=== PATIENT | male | born 1985 | race Caucasian/White ===

== ENCOUNTER 2024-05-13 15:49 | Inpatient (IN) | payer OTHER, SELFPAY ==
[2024-05-13] VITALS (10 sets, daily range): BP systolic 105–129; BP diastolic 60–75; BMI 37.8; BMI 36.9
--- NOTE | 2024-05-13 10:12 | ED.GENMED ---
History of Present Illness
General
Chief Complaint: Abdominal Symptoms
Source: patient
Exam Limitations: none
Time Seen by Provider: 05/13/24 09:57
Nursing documentation reviewed up to this point in time: agreed with
History of Present Illness
History of Present Illness:
38-year-old male with history of NIDDM, HTN, here for 'I feel something stuck in my gut and it's hard to eat or drink anything.' also PCP ordered out pt CXR for cough. States he gets coughing spells that make his abdomen hurt.
States waxing and waning fatigue, feeling hot, lightheaded, poor appetite, abdominal discomfort past 10 days. 10 days ago had one episode of diarrhea after eating hot dog, fries, milkshake from [employer]. No diarrhea since.
States he noted the right side of his abdomen sticks out more than the left.
Past History
Past History
ED Past Medical History: HTN and NIDDM
ED Past Surgical History: None
Social History
Tobacco: Non-smoker
Alcohol: Occasional
Drug: None
Personal: Single
Living: with roommate
Employment: Employed
Family History
Family History: Early CAD and Other (ME in father 30's and GF; GM with brain tumor)
Review of Systems
Review of Systems
Allergies reviewed?: Yes
All Other Systems: ROS reviewed and negative except as documented in HPI and ROS
Constitutional: Reports fatigue; Denies fever or chills
EENT: Denies sore throat
Respiratory: Reports cough (intermittent, makes him gag and throw up, no vomiting in between.); Denies trouble breathing
Cardiac: Denies chest pain
ABD/GI: Reports abdominal pain and nausea
: Denies dysuria, frequency, flank pain, difficulty voiding or urgency
Musculoskeletal: Reports no symptoms
Skin: Reports no symptoms
Neurological: Reports no symptoms
Phy Exam
Physical Exam
Physical Exam:
GENERAL: No acute distress. A&Ox3.
CONSTITUTIONAL: Afebrile.
EYES: clear, conjunctivae normal
ENMT: dry mucus membranes, Pharynx nl
RESPIRATORY: Regular respirations, nonlabored, lungs clear.
CARDIOVASCULAR: Regular rate and rhythm, no murmurs, no rubs.
GI: Soft, obese, mildly generally tender, normal BS
MUSCULOSKELETAL: Moves with ease. Well perfused.
SKIN: Warm, dry, pink
PSYCH: Normal mood and affect. Well kept, interactive and appropriate
NEUROLOGIC: Awake, alert and oriented. No focal neurological deficits
Course
Orders/Labs/Results
Orders:
Orders
05/13/24 10:11
CR Chest - 2 Views Urgent
Comment:
Reason For Exam: cough, feels 'lump' in my esophagus
05/13/24 10:12
CT Abd/Pel (IV only)-DH only Urgent
Comment:
Reason For Exam: abd pain, more mid low to left
05/13/24 10:25
Acetaminophen Urgent
Comment: ADDON
Complete Blood Count/With Diff Urgent
Comprehensive Metabolic Panel Urgent
Lipase Urgent
Manual Differential Urgent
Salicylate Urgent
05/13/24 14:16
CefTRIAXone [Rocephin] 1,000 mg IV NOW STA
MetroNIDAZOLE 500 MG/100 ML [Flagyl 500 mg] 100 ml IV NOW
05/13/24 15:21
Potassium Chloride 10% Elixir [KCl Elixir] 40 meq PO NOW STA
05/13/24 15:36
Admit/Transfer Patient As Directed
Co-Sign Provider:
Level of Care: Inpatient admission
Assign to:: Medical/Surgical
Physician / Group: [email or web address]
Diagnosis: diverticulitis
Reason for Hospitalization: diverticulitis
Expected length of stay greater than two midnights?: Yes
ELOS- Estimated Length of Stay in days: 3
I certify the patient meets the requirements for IP care: Yes
PRN Pain Medication Management As Directed
May give lesser potent ordered pain med per pt: Yes
preference::
Protocol:: Medication orders for pain may be administered in a
manner that supports deferring to patient preference
when the pt is:
- Requesting an ordered lesser potent pain medication.
Least to most potent pain medications are defined
as: acetaminophen < NSAID < tramadol < opioids
(morphine, oxycodone, hydromorphone).
- Requesting a lesser dose of the same medication IF
ORDERED.
- Requesting a less intrusive route of administration
if both routes are prescribed by the provider (PO <
IV).
05/13/24 15:37
Code Status As Directed
Resuscitation Status: Full Code
05/13/24 16:21
Dextrose 5%/0.45%Sodchl 1000ML [D5/0.45%NaCl] 1,000 ml IV 125 mls/hr
Dextrose 50%-Water [Dextrose 50% Syringe] 12.5 grams IV H28LBLA PRN
Glucagon [GlucaGen] 1 mg IM PRN PRN
HYDROmorphone [Dilaudid] 0.5 mg IV Q4HPRN PRN
Ibuprofen [Motrin] 400 mg PO Q6HPRN PRN
Ondansetron Injectable [Zofran] 4 mg IV Q6HPRN PRN
05/13/24 16:21
ColoRectal Surgery Consult Routine
Consulting Provider: Gray Ivan
Was physician already notified: Yes
Activity As Directed
Activity Level: As Tolerated
Bedside Glucose Monitoring As Directed
Frequency: AC&HS
Additional Instructions:: Change to q6h if pt on TPN, tube feeding or not eating
Vital Signs As Directed
Frequency: Per unit guidelines
DX Deep Vein Thrombosis Video Routine
05/13/24 16:30
Insulin Aspart Corrective Low [Novolog Flexpen-Low Resistance] See Protocol SC AC
05/13/24 18:00
Enoxaparin Sodium [Lovenox] 40 mg SC QPM
05/14/24 00:00
MetroNIDAZOLE 500 MG/100 ML [Flagyl 500 mg] 100 ml IV Q8H
05/14/24 Breakfast
NPO
Allow oral meds: Yes
Allow clear liquids: No
05/14/24 06:30
Complete Blood Count/With Diff IN AM
Glycohemoglobin (HgbA1c) IN AM
05/14/24 08:00
Lisinopril [Zestril] 20 mg PO DAILY
NIFEdipine EXTENDED RELEASE [Procardia Xl (Extended Release)] 30 mg PO DAILY
05/14/24 16:00
CefTRIAXone [Rocephin] 1,000 mg IV Q24H
05/15/24 06:00
Basic Metabolic Panel IN AM
LFT [Gyuos-Dpfo-Irpwmqs] IN AM
05/16/24 06:00
Basic Metabolic Panel IN AM
LFT [Bwrze-Zqpb-Wnmhpnt] IN AM
05/17/24 06:00
Basic Metabolic Panel IN AM
LFT [Hxmug-Myul-Vwfsous] IN AM
05/18/24 06:00
Basic Metabolic Panel IN AM
Abnormal Lab Results
05/13/24
10:25
Plt Count 128 L 10^3/uL
(130-400)
MPV 12.2 H fL
(7.4-10.4)
Segmented Neutrophils 38 L %
(42-75)
Band Neutrophils 4 H %
(0-3)
Monocytes (Manual) 21 H %
(2-9)
Sodium 134 L mmol/L
(135-145)
Potassium 3.4 L mmol/L
(3.5-5.1)
Chloride 96 L mmol/L
(98-107)
Total Bilirubin 2.9 H mg/dl
(0.2-1.3)
AST 390 H U/L
(17-59)
ALT 323 H U/L
(0-50)
Alkaline Phosphatase 138 H U/L
(38-126)
Salicylates < 1.0 L mg/dl
(2.0-20.0)
Acetaminophen < 10 L ug/ml
(10-30)
05/13/24 10:25
05/13/24 10:25
Vital Signs
Initial and Last Documented VS:
Initial Vital Signs
Temp Pulse Resp BP Pulse Ox
99.4 F 97 16 120/75 97
05/13/24 08:55 05/13/24 08:55 05/13/24 08:55 05/13/24 08:55 05/13/24 08:55
Last Documented Vital Signs
Temp Pulse Resp BP Pulse Ox
98.7 F 79 18 110/62 95
05/14/24 07:10 05/14/24 08:09 05/14/24 07:10 05/14/24 08:09 05/14/24 07:10
MDM/Problems Addressed
MDM/Problems Addressed:
38-year-old male with history of NIDDM, HTN, here for 'I feel something stuck in my gut and it's hard to eat or drink anything.' also PCP ordered out pt CXR for cough. States he gets coughing spells that make his abdomen hurt.
States waxing and waning fatigue, feeling hot, lightheaded, poor appetite, abdominal discomfort past 10 days. 10 days ago had one episode of diarrhea after eating hot dog, fries, milkshake from [employer]. No diarrhea since.
States he noted the right side of his abdomen 'sticks out' more than the left.
Afebrile, NAD
Mild general abdominal tenderness, soft, symmetrical
11:30 a.m.
CBC no clinically significant abnormality
CMP total bilirubin 2.9 mild to moderate elevated liver enzymes
Lipase normal
2:15 PM:
CT abdomen pelvis with IV only contrast radiology report read: IMPRESSION:
1. Findings as above most consistent with acute sigmoid diverticulitis. There is associated abnormal collection of gas and fluid measuring up to 1.7 cm in diameter, most likely small abscess. As above, this may be an intramural position.
2. Hepatomegaly and hepatic fatty infiltration.
3. Splenomegaly.
4. Mild retroperitoneal lymphadenopathy. This may be reactive, exact etiology is indeterminate at CT.
Case discussed with Dr. Orlanod who agrees with admission to hospitalist, IV antibiotics Rocephin and Flagyl
Hospitalist notified of admission
*Critical Care Note
Total Time (30-74mins, 75-104mins- exclusive of procedures): Not Applicable
ED Attending Note
-
Portions of this chart may have been created with voice recognition software.� Occasional wrong word or��sound alike� substitutions may have occurred due to the inherent limitations of voice recognition software.
Discharge Plan
Departure
Patient Disposition: Admit
Date of Disposition: 05/13/24
Time of Disposition: 14:12
Admit to: Med/Surg
Presentation/result/management discussed w/ accepting MD/DO: Hospitalist
Condition: Fair
Discharge Problem:
Diverticulitis large intestine, Transaminitis, intramural abscess
Interventions
Interventions:
*Risk Screen - Suicide Last Done: 05/13/24 10:17
*General Assessment Last Done: 05/13/24 10:17
*Neglect/Abuse Screening Last Done: 05/13/24 10:17
ED- Fall Risk Assessment Last Done: 05/13/24 10:19
*ED COVID-19 Vaccine History Last Done: 05/13/24 10:17
*Nursing Disposition Last Done: 05/13/24 16:19
SK-Pkhwsn-Fjtgrjdorp Assessment Last Done: 05/13/24 10:17
Discharge Date and Time
Discharge Date/Time: 05/13/24 16:19
[2024-05-13 10:44] LABS: Hematocrit 40.3 % (39.0-52.0); Mean Corp Hgb Conc. 34.7 g/dL (33.0-37.0); Mean Corpuscular Hgb 29.6 pg (27.0-31.0); Mean Corpuscular Volume 85.2 fL (80.0-94.0); Platelet Count 128 10^3/uL (130-400); Red Blood Cell Count 4.73 10^6/uL (4.70-6.10); Red Cell Dist. Width 13.1 % (11.5-14.5); White Blood Cell Count 10.1 10^3/uL (4.8-10.8)
[2024-05-13 10:53] LABS: ALT (SGPT) 323 U/L (0-50); AST (SGOT) 390 U/L (17-59); Albumin 3.5 g/dl (3.5-5.0); Alkaline Phosphatase 138 U/L (38-126); Blood Urea Nitrogen 15 mg/dl (9-20); Calcium 8.8 mg/dl (8.4-10.2); Carbon Dioxide 25 mmol/L (22-30); Chloride 96 mmol/L (98-107); Estimated Creatinine Clearance > 125 ml/min; Glucose 97 mg/dl (70-99); Lipase 142 U/L (23-300); Potassium 3.4 mmol/L (3.5-5.1); Sodium 134 mmol/L (135-145); Total Bilirubin 2.9 mg/dl (0.2-1.3); Total Protein 6.9 g/dl (6.3-8.2); eGFR > 60.00
[2024-05-13 11:05] LABS: Mean Platelet Volume 12.2 fL (7.4-10.4)
[2024-05-13 11:31] LABS: Absolute Neutrophils -Man Diff 4.2 10^3/uL (1.4-6.5); Band Neutrophils 4 % (0-3); Lymphocytes 27 % (20-51); Monocytes 21 % (2-9); Segmented Neutrophils 38 % (42-75)
[2024-05-13 11:32] LABS: Atypical Lymphocytes 7 %; Metamyelocytes 3 % (-); Normal RBC Morphology Yes; Platelets Checked Yes; Smudge Cells 2+; Total Cells Counted 100; Vacuolated Segs 2+
[2024-05-13] MEDS: ROCEPHIN 1000 MG IV (15:11)
--- NOTE | 2024-05-13 15:16 | HPS.HSE ---
Family Physician
-
Family Physician: Flor Casiano
Chief Complaint
-
abdominal pain assoicated with nausea, vomiting and diarrhea.
History of Present Illness
38-year-old male with history of NIDDM, HTN presented to us with mid lower abdominal pain radiating to left side associated with nausea, vomiting and diarrhea for past ten days. it mainly started after eating hot dog and fries from [employer].
patient stated pain is intermittent. he complained of vomiting and diarrhea. for past three days it got worse which prompted him to come to the ER. he is also complaining of fatigue, feeling hot, lightheaded, poor appetite. denied fever, chills,
chest pain, sob. denied SAAVEDRA, dizzy or syncopal episode. denied dysuria or hematuria.
CT with diverticulitis. admitting for further management. patient received iv ceftriaxone and Flagyl in ER.
Medical History
Past Medical History
Past Medical History: Reports Other
Additional Past Medical History:
hyperlipidemia
type 2 DM
HTN
Past Surgical History: Reports None
Social History
Tobacco: Non-smoker
Alcohol: None
Drug: None
Employment: Employed
Family History
Family History: Not pertinent
Allergies / Home Medications
Allergies reflects when Allergies were last updated in [employer].
Home Medications with original date entered in [employer]
Allergy/Medication List:
Allergies
Allergy/AdvReac Type Severity Reaction Status Date / Time
No Known Allergies Allergy Verified 05/13/24 08:58
Home Medications
ibuprofen 200 mg tablet (Advil) 400 mg PO DAILYPRN PRN mild pain 08/02/21
cyanocobalamin (vitamin B-12) 1,000 mcg tablet 1,000 mcg PO DAILY #30 tabs 08/03/21
nifedipine 30 mg tablet,extended release 30 mg PO DAILY #30 tabs 08/03/21
atorvastatin 10 mg tablet (Lipitor) 10 mg PO QPM 05/13/24
lisinopril 20 mg tablet 20 mg PO DAILY 05/13/24
metformin 500 mg tablet 500 mg PO BID 05/13/24
omega 6-uzi-sgr-fish oil 1,000 mg (120 mg-180 mg) capsule (Fish Oil) 1 cap PO DAILY 05/13/24
therapeutic multivitamin 1 tab PO DAILY 05/13/24
Review of Systems
-
Constitutional: Reports No Symptoms
EENT: Reports No Symptoms
Respiratory: Reports No Symptoms
Cardiac: Reports No Symptoms
Abdomen/GI: Reports Abdominal Pain, Nausea, Vomiting and Diarrhea
: Reports No Symptoms
Musculoskeletal: Reports No Symptoms
Skin: Reports No Symptoms
Neurological: Reports No Symptoms
Endocrine: Reports No Symptoms
Hematologic/Lymphatic: Reports No Symptoms
Psych: Reports No Symptoms
Physical Exam
Vital Signs
Vital Signs
Temp Pulse Resp BP Pulse Ox
99.4 F 85 17 128/72 89
05/13/24 08:55 05/13/24 14:00 05/13/24 14:00 05/13/24 14:00 05/13/24 14:00
Physical Exam
General: Well Developed, Well Nourished and No Apparent Distress
HEENT: NormoCephalic, Moist mucous membranes and Atraumatic
Respiratory: Clear
Cardiac: S1/S2 and Regular Rhythm; No Murmur or Rub
GI: Soft, Non Distended, Normal Bowel Sounds and Tender; No Organomegaly
Rectal: Deferred by Provider
Musculoskeletal: No Clubbing, No Cyanosis and No Edema
Skin: No Rash
Neuro: AO x 3 and Nonfocal/grossly intact
Psych: Calm
Laboratory Results
-
05/13/24 10:25
05/13/24 10:25
Laboratory Results
Total Bilirubin 2.9 mg/dl (0.2-1.3) H 05/13/24 10:25
AST 390 U/L (17-59) H 05/13/24 10:25
ALT 323 U/L (0-50) H 05/13/24 10:25
Alkaline Phosphatase 138 U/L (38-126) H 05/13/24 10:25
Lipase 142 U/L (23-300) 05/13/24 10:25
Data Reviewed
-
CT Scan: Report Reviewed by me
Lab Data: Labs Reviewed by me
Impression/Plan
-
#diverticulitis/possible small intramural abscess
-CT abdomen pelvis with Findings as above most consistent with acute sigmoid diverticulitis. There is associated abnormal collection of gas and fluid measuring up to 1.7 cm in diameter, most likely small abscess. As above, this may be an intramural
position.
2. Hepatomegaly and hepatic fatty infiltration.
3. Splenomegaly.
4. Mild retroperitoneal lymphadenopathy. This may be reactive, exact etiology is indeterminate at CT.
-chest x ray with Hypoaerated lungs without consolidation.
-colorectal consulted
-keep patient NPO, fluids continued for hydration
-iv ceftriaxone and flagyl continued
-Dilaudid prn for pain
-Zofran prn for n/v
#transaminitis unclear likely acute ischemic liver injury.
-AST 390,ALT 323, ALK 138, total Bili 209
-GI consulted
#hypokalemia likely from poor oral intake/diarrhea and vomiting
-k 3.4
-oral kcl
-monitor BMP in am
#HLD
-hold statin due elevated transaminitis
#essential htn
-lisinopril,nifedipine continued with hold parameter
#type 2 Dm
-hold metformin
-sliding scale
Hx of morbid obesity likely 2/2 excess calories
weight loss suggested
DVTppx
Lovenox
Full code
[2024-05-13] MEDS: FLAGYL 500 MG 100 IV ×2 (15:17→23:02)
[2024-05-13] MEDS: KCL ELIXIR 40 MEQ PO (16:02)
--- NOTE | 2024-05-13 16:14 | W.PN.UPDATE ---
Update Note
Progress Note Update
This note serves as an addendum to the H&P by explosive ordnance disposal technician MAU Sarah avila
HPI:
38M HX NIDDM, HTN seen at ER:
- acute mid lower abdominal pain radiating to left side associated with nausea, vomiting and diarrhea for last ten days. - - onset started after eating hot dog and fries from [employer]
- pain is intermittent
- vomiting and diarrhea for past three days
- fatigue, feeling hot, lightheaded, poor appetite.
ROS:
- Denied fever, chills, chest pain, sob. denied SAAVEDRA, dizzy or syncopal episode. denied dysuria or hematuria.
Reviewed VS:
Vital Signs
Temp Pulse Resp BP Pulse Ox
99.4 F 85 17 128/72 89
05/13/24 08:55 05/13/24 14:00 05/13/24 14:00 05/13/24 14:00 05/13/24 14:00
Abnormal Lab Results
05/13/24
10:25
Plt Count 128 L
MPV 12.2 H
Segmented Neutrophils 38 L
Band Neutrophils 4 H
Monocytes (Manual) 21 H
Sodium 134 L
Potassium 3.4 L
Chloride 96 L
Total Bilirubin 2.9 H
AST 390 H
ALT 323 H
Alkaline Phosphatase [address] Abd/Pel (IV only)-DH only
1. Findings as above most consistent with acute sigmoid diverticulitis. There is associated abnormal collection of gas and fluid measuring up to 1.7 cm in diameter, most likely small abscess. As above, this may be an intramural position.
2. Hepatomegaly and hepatic fatty infiltration.
3. Splenomegaly.
4. Mild retroperitoneal lymphadenopathy. This may be reactive, exact etiology is indeterminate at CT.
11/29/21 TTE
Normal left ventricular size and systolic function. LV ejection fraction is 70- 75%.
No significant valvular disease.
No prior study available for comparison.
Last hospitalist admission:
DATE OF ADMISSION: 08/02/2021 - DATE OF DISCHARGE: 08/03/2021
DISCHARGE DIAGNOSIS:
1. Right sided weakness/numbness along with right facial droop likely secondary to hypertension-induced neurological symptoms.
2. Newly diagnosed diabetes mellitus.
ASSESSMENT & PLAN
Acute diverticulitis/possible small intramural abscess
- NPO and IVF
- IV CFTZ and Metro
- PRN Dilaudid IV
- PRN Zofran IV
Transaminitis unclear likely acute ischemic liver injury.
Hepatomegaly and hepatic fatty infiltration.
Splenomegaly.
Mild retroperitoneal lymphadenopathy. This may be reactive, exact etiology is indeterminate at CT
- Hold stain
- Trend LFts
- Onco consult
Ess[place] HTN
- c/w Lisinopril, Nifedipine
DMT2
- hold Metformin'
- add ISS low
DVT Px: LMWH
Full code
IP MS
[2024-05-13 16:59] LABS: Glucose - Point of Care 93 mg/dl (70-99)
[2024-05-13] MEDS: NOVOLOG FLEXPEN-LOW RESISTANCE SC (16:59)
--- NOTE | 2024-05-13 17:03 | CON.GI ---
Consultation
-
Date/Time Consultation Requested: 05/13/24
Date/Time Consultation Performed: 05/13/24
Requesting Provider: Sarah Alex
Performing Provider: Nakita King
Reason for Consultation: Diverticulitis, elevated LFTs
Medical History
Chief Complaint / HPI
Chief Complaint: N/V/Diarrhea
History of Present Illness:
Dayne is a 38-year-old male with past medical history of TIA in 2021, hypertension, diabetes who presents with nausea, vomiting and diarrhea for the last [address] scan obtained on admission showed enlarged liver, diffuse decreased attenuation
representing fatty infiltration. No intrahepatic or extrahepatic ductal dilatation. Gallbladder is unremarkable. Spleen is enlarged. Pancreas appears normal. Evidence of acute sigmoid diverticulitis with associated abnormal collection of gas
and fluid measuring up to 1.7 cm, most likely representing a small abscess. Additionally there is an aorto caval lymph node measuring 1.1 cm.
He is afebrile and hemodynamically unstable, currently not having much abdominal pain but has persistent nausea. Denies family history of colorectal cancer, advance colon polyps or liver disease. Denies tobacco alcohol or illicit drug use. Denies
prior hepatitis infection. Does admit to taking about 4 tablets of ibuprofen daily for the last week otherwise does not regularly use NSAIDs or Tylenol use. Denies any zeve-pkz-zmqieyh or herbal supplements. No prior endoscopy or colonoscopy.
Labs: WBC 10.1, hemoglobin 14, platelets 128, sodium 134, potassium 3.4, chloride 96, T. bili 2.4, AST 390, ALT 323, alk phos 138, [id number]
Past Medical History
Past Medical History: CVA (TIA), HTN and NIDDM
Social History
Tobacco: Non-Smoker
Alcohol: None
Drug: None
Family History
Family History: Reviewed & Not Pertinent
Allergies / Home Medications
Allergy/AdvReac Type Severity Reaction Status Date / Time
No Known Allergies Allergy Verified 05/13/24 08:58
�Medication �Instructions �Recorded
ibuprofen 200 mg tablet (Advil) 400 mg PO DAILYPRN PRN mild pain 08/02/21
cyanocobalamin (vitamin B-12) 1,000 mcg PO DAILY #30 tabs 08/03/21
1,000 mcg tablet
nifedipine 30 mg tablet,extended 30 mg PO DAILY #30 tabs 08/03/21
release
atorvastatin 10 mg tablet (Lipitor) 10 mg PO QPM 05/13/24
lisinopril 20 mg tablet 20 mg PO DAILY 05/13/24
metformin 500 mg tablet 500 mg PO BID 05/13/24
omega 2-pxf-kxy-fish oil 1,000 mg 1 cap PO DAILY 05/13/24
(120 mg-180 mg) capsule (Fish Oil)
therapeutic multivitamin 1 tab PO DAILY 05/13/24
Review of Systems
-
History Source: Patient
All other systems: A 12 pt ROS was Negative except as stated above in HPI
Vital Signs
Temp Pulse Resp BP Pulse Ox
99.4 F 93 23 116/61 89
05/13/24 08:55 05/13/24 16:00 05/13/24 16:00 05/13/24 16:00 05/13/24 16:00
Physical Exam
Exam
General: Well Developed, Well Nourished, No Apparent Distress and Comfortable
GI: Soft, Non Tender, Non Distended and Normal Bowel Sounds
Results
WBC 10.1 10^3/uL (4.8-10.8) 05/13/24 10:25
Hgb 14.0 g/dL (13.0-18.0) 05/13/24 10:25
Hct 40.3 % (39.0-52.0) 05/13/24 10:25
MCV 85.2 fL (80.0-94.0) 05/13/24 10:25
Plt Count 128 10^3/uL (130-400) L 05/13/24 10:25
Sodium 134 mmol/L (135-145) L 11/12/24 10:25
Potassium 3.4 mmol/L (3.5-5.1) L 05/13/24 10:25
Chloride 96 mmol/L (98-107) L 05/13/24 10:25
Carbon Dioxide 25 mmol/L (22-30) 05/13/24 10:25
BUN 15 mg/dl (9-20) 05/13/24 10:25
Creatinine 1.1 mg/dL (0.7-1.3) 05/13/24 10:25
Calcium 8.8 mg/dl (8.4-10.2) 05/13/24 10:25
Total Bilirubin 2.9 mg/dl (0.2-1.3) H 05/13/24 10:25
AST 390 U/L (17-59) H 05/13/24 10:25
ALT 323 U/L (0-50) H 05/13/24 10:25
Alkaline Phosphatase 138 U/L (38-126) H 05/13/24 10:25
Lipase 142 U/L (23-300) 05/13/24 10:25
Diagnostic Image Results:
Prior GI Procedures:
EGD:
Colonoscopy:
Assessment / Plan
-
38 y.o. male w/ PMhx HTN, DM2, Hx TIA admitted with sigmoid diverticulitis w/ abscess and elevated liver enzymes.
#Acute Complicated Sigmoid Diverticulitis w/ small abscess
-WBC 10, 4 bands
-BCx pending
-c/w Zosyn
-Colorectal surgery consulted, suspect abscess too small to be drained
-will require colonoscopy 6-8 weeks following resolution of acute diverticulitis
-Antiemetics
-Okay to advance to clear liquids when patient able to tolerate
#Elevated Liver enzymes
-Predominantly hepatocellular, T. bili 2.4, AST 390, ALT 323, alk phos 138
-given clinical scenario, would expect to find liver abscesses, however, not seen on imaging; evidence of fatty liver
-check hepatitis serologies, ceruloplasmin, acetaminophen level, salicylates
-no evidence of choledocholithiasis or cholecystitis
-if no improvement in AM labs/worsening, recommend MRI/MRCP
#Hepatomegaly
#Hepatic Steatosis
-liekly 2/2 underlying metabolic disease, has several risk factors including obesity, HTN, DM2
-outpatient f/u for formal workup and assessment of fibrosis
Data Reviewed
-
CT Scan: Report Reviewed by me
Old Records: Reviewed
-
-
Thank you for consultation and allowing me to participate in the patient's care. Please call the health professional GI physician during the after hours with any questions or concerns.
[2024-05-13] MEDS: D5/0.45%NACL 1000 IV (17:05)
[2024-05-13] MEDS: LOVENOX 40 MG SC (17:10)
[2024-05-13 17:56] LABS: Acetaminophen < 10 ug/ml (10-30); Salicylate < 1.0 mg/dl (2.0-20.0)
--- NOTE | 2024-05-13 19:30 | PTCARENOTE ---
Pt received from day shift RN. Pt pleasant, AAOX3, VSS, and absent of pain. Pt bed in lowest position and call phelps within reach. Pt educated on importance of call phelps usage, pt relays understanding and cooperation. Will continue with current plan
of care.
--- NOTE | 2024-05-13 20:31 | CON.CRS ---
Consultation
-
Date/Time Consultation Requested: 05/13/2024 @16:21
Date/Time Consultation Performed: 05/13/2024 @18:00
Requesting Provider: JA Long
Performing Provider: Art Ivan MD
Reason for Consultation: Sigmoid diverticulitis
Medical History
-
Chief Complaint: abdominal pain
History of Present Illness:
38yo male admitted with his first episode of sigmoid diverticulitis. He has a history of NIDDM, hypertension and obesity, who developed left lower quadrant abdominal pain 10 days ago. He has had nausea and intermittent vomiting. His symptoms began
after eating a hot dog followed by abdominal discomfort and diarrhea. Throughout the week he was not moving his bowels. He denies any rectal bleeding, fevers or chills. At present he is comfortable and he denies nausea, but he is not hungry. No
prior colonoscopy.
He has a low-grade fever (100.4) and he is not tachycardic. He appears comfortable and his abdomen is minimally tender in the LLQ. There are no peritoneal signs. His wbc is normal. A CT scan of the abdomen and pelvis with IV contrast there is mild
inflammatory changes of the sigmoid colon with a 1.7cm intramural abscess. There is no free air.
Past Medical History
Past Medical History: HTN (hypertension-induced neurologic symptoms 08/23), Hypercholesterolemia and NIDDM
Past Surgical History: None
Social History
Tobacco: Non-Smoker
Alcohol: None
Drug: None
Personal: Single
Employment: Employed
Family History
Family History: Reviewed & Noncontributory
Allergies / Home Medications
Allergy/AdvReac Type Severity Reaction Status Date / Time
No Known Allergies Allergy Verified 05/13/24 08:58
�Medication �Instructions �Recorded �Confirmed �Type
ibuprofen 200 mg tablet (Advil) 400 mg PO DAILYPRN PRN mild pain 08/02/21 05/13/24 History
cyanocobalamin (vitamin B-12) 1,000 mcg PO DAILY #30 tabs 08/03/21 05/13/24 Rx
1,000 mcg tablet
nifedipine 30 mg tablet,extended 30 mg PO DAILY #30 tabs 08/03/21 05/13/24 Rx
release
atorvastatin 10 mg tablet (Lipitor) 10 mg PO QPM 05/13/24 05/13/24 History
lisinopril 20 mg tablet 20 mg PO DAILY 05/13/24 05/13/24 History
metformin 500 mg tablet 500 mg PO BID 05/13/24 05/13/24 History
omega 7-bvf-thm-fish oil 1,000 mg 1 cap PO DAILY 05/13/24 05/13/24 History
(120 mg-180 mg) capsule (Fish Oil)
therapeutic multivitamin 1 tab PO DAILY 05/13/24 05/13/24 History
Review of Systems
-
History Source: Patient
All other systems: Negative unless noted
A 10 point review of systems was completed, and was negative except as per HPI.
Physical Exam
Vital Signs
Temp 100.4 F H 05/13/24 16:55
Pulse 92 05/13/24 16:55
Resp Rate 19 05/13/24 16:55
Blood pressure 117/68 05/13/24 16:55
SaO2 94 05/13/24 16:55
05/12/24 05/13/24 05/14/24
06:59 06:59 06:59
Actual Weight 126.915 kg
Body Mass Index (BMI) 36.9
Lab Results / Allergies
05/13/24 10:25
05/13/24 10:25
WBC 10.1 10^3/uL (4.8-10.8) 05/13/24 10:25
Hgb 14.0 g/dL (13.0-18.0) 05/13/24 10:25
Hct 40.3 % (39.0-52.0) 05/13/24 10:25
Plt Count 128 10^3/uL (130-400) L 05/13/24 10:25
Allergy/AdvReac Type Severity Reaction Status Date / Time
No Known Allergies Allergy Verified 05/13/24 08:58
Physical Exam
General: Well Developed, Well Nourished and Comfortable
HEENT: Anicteric
Respiratory: Clear
Cardiac: Regular Rhythm
GI: Soft, Non Distended and Tender (LLQ, minimal, no peritoneal signs)
Musculoskeletal: No Edema
Skin: Warm
Neuro: Awake and Alert
Data Reviewed
-
CT Scan: Image Personally Visualized and interpreted, Report Reviewed by me and Discussed with Patient
Labs: Labs Reviewed by me and Discussed with Patient
Assessment / Plan
-
Sigmoid diverticulitis (1st episode) with 1.7 intramural abscess.
I reviewed the current findings with the patient and discussed the treatment options, i.e. nonoperative management versus surgery. We discussed the risks and benefits of each. There is no indication for surgery at this time, which could involve a
temporary colostomy. The plan is for bowel rest and antibiotics. The abscess is too small to consider percutaneous drainage, and intramural abscesses are difficult to drain. Colonoscopy once the acute process has resolved. He is in agreement with
the plan. Continue NPO tonight and will reassess in the morning.
He has elevated LFT's and no ductal dilatation on CT. GI is following.
[2024-05-13 21:17] LABS: Glucose - Point of Care 110 mg/dl (70-99)
[2024-05-14] MEDS: D5/0.45%NACL 1000 IV ×3 (02:21→21:35)
[2024-05-14 07:10] VITALS: BP 110/62
[2024-05-14 07:58] LABS: Glucose - Point of Care 147 mg/dl (70-99)
[2024-05-14] MEDS: NOVOLOG FLEXPEN-LOW RESISTANCE SC ×2 (08:05→17:22)
[2024-05-14] MEDS: FLAGYL 500 MG 100 IV (08:08)
[2024-05-14] MEDS: PROCARDIA XL (EXTENDED RELEASE) 30 MG PO (08:09)
[2024-05-14] MEDS: ZESTRIL 20 MG PO (08:09)
[2024-05-14 08:23] LABS: PT 14.7 Sec (11.4-14.6)
--- NOTE | 2024-05-14 08:33 | W.PN.GI.CBS2 ---
Today's Communication / Plan
-
f/u AM labs to determine if MRI/MRCP needed
Assessment / Plan
-
38 y.o. male w/ PMhx HTN, DM2, Hx TIA admitted with sigmoid diverticulitis w/ abscess and elevated liver enzymes.
#Acute Complicated Sigmoid Diverticulitis w/ small abscess
-WBC 10, 4 bands
-BCx pending
-c/w Zosyn
-Colorectal surgery consulted, suspect abscess too small to be drained
-will require colonoscopy 6-8 weeks following resolution of acute diverticulitis
-Antiemetics
-bowel rest
-NPO-- will await surgery reeval today to advance diet
#Elevated Liver enzymes
-Predominantly hepatocellular, T. bili 2.4, AST 390, ALT 323, alk phos 138
-given clinical scenario, would expect to find liver abscesses, however, not seen on imaging; evidence of fatty liver
-check hepatitis serologies, ceruloplasmin; acetaminophen and salicylate levels undetectable
-no evidence of choledocholithiasis or cholecystitis
-if no improvement in AM labs/worsening, recommend MRI/MRCP
#Hepatomegaly
#Hepatic Steatosis
-liekly 2/2 underlying metabolic disease, has several risk factors including obesity, HTN, DM2
-outpatient f/u for formal workup and assessment of fibrosis
Subjective
Subjective
Date of Service: May 14, 2024
Patient seen in follow-up, overall, no real change in symptoms since yesterday. AM labs pending
Objective
Data Reviewed
Laboratory Data:
Laboratory Results
PT 14.7 Sec (11.4-14.6) H 05/14/24 06:30
INR 1.10 05/14/24 06:30
Total Bilirubin 2.9 mg/dl (0.2-1.3) H 05/13/24 10:25
AST 390 U/L (17-59) H 05/13/24 10:25
ALT 323 U/L (0-50) H 05/13/24 10:25
Alkaline Phosphatase 138 U/L (38-126) H 05/13/24 10:25
Lipase 142 U/L (23-300) 05/13/24 10:25
Vital Signs and I&O:
Vital Signs
Temp Pulse Resp BP Pulse Ox
98.7 F 79 18 110/62 95
05/14/24 07:10 05/14/24 08:09 05/14/24 07:10 05/14/24 08:09 05/14/24 07:10
I&O
05/13/24 05/14/24 05/15/24
06:59 06:59 06:59
Intake Total 1600 / 1600
Balance 1600 / 1600
Physical Exam
Physical Exam
HEENT: Anicteric and Moist mucous membranes
GI: Soft, Non Distended, Non Tender and Normal Bowel Sounds
[2024-05-14 08:48] LABS: ALT (SGPT) 283 U/L (0-50); AST (SGOT) 320 U/L (17-59); Alkaline Phosphatase 126 U/L (38-126); Blood Urea Nitrogen 12 mg/dl (9-20); Carbon Dioxide 28 mmol/L (22-30); Chloride 99 mmol/L (98-107); Direct Bilirubin 1.3 mg/dl (0.0-0.4); Estimated Creatinine Clearance > 125 ml/min; Glucose 130 mg/dl (70-99); Potassium 3.3 mmol/L (3.5-5.1); Sodium 137 mmol/L (135-145); Total Bilirubin 1.9 mg/dl (0.2-1.3); Total Protein 6.4 g/dl (6.3-8.2); eGFR > 60.00
--- NOTE | 2024-05-14 08:52 | W.PN.CRS1 ---
Today's Communication / Plan
-
Advance to clears
IV antibiotics
Assessment/Plan
-
Sigmoid diverticulitis (1st episode) with 1.7 intramural abscess.
Tmax 100.4 yesterday, WBC pending
-Continue to trend labs
-Advance diet to clears
-No role for surgery at this time, if he worsens he will require a colectomy with colostomy creation
-Continue IV antibiotics
-Eventual colonoscopy in an outpatient setting
-Will follow
Subjective Data
Subjective Data
Date of Service: May 14, 2024
Patient states he feels 'the same'. He is very thirsty. He does not feel abdominal pain but feels more of a 'lump' in his abdomen. He is having loose stools and flatus.
Objective Data
-
Vital Signs
Temp Pulse Resp BP Pulse Ox
98.7 F 79 18 110/62 95
05/14/24 07:10 05/14/24 08:09 05/14/24 07:10 05/14/24 08:09 05/14/24 07:10
Intake & Output
05/13/24 05/14/24 05/15/24
06:59 06:59 06:59
Intake Total 1600 / 1600
Balance 1600 / 1600
Intake:
IV fluids (Total) 1500 / 1500
IV piggybacks 100 / 100
Other:
Number of approximated MODERATE 3
amounts of urine
Lab Results
05/14/24 06:30
Physical Exam
-
General: No Acute Distress and AOx3
Abdomen: Soft, Non Distended and Tender (mild suprapubic)
Skin: Warm and Dry
[2024-05-14 09:09] LABS: Hematocrit 37.7 % (39.0-52.0); Hemoglobin 12.9 g/dL (13.0-18.0); Mean Corp Hgb Conc. 34.2 g/dL (33.0-37.0); Mean Corpuscular Volume 87.7 fL (80.0-94.0); Mean Platelet Volume 13.1 fL (7.4-10.4); Platelet Count 132 10^3/uL (130-400); Red Cell Dist. Width 13.4 % (11.5-14.5); White Blood Cell Count 8.5 10^3/uL (4.8-10.8)
[2024-05-14 10:33] LABS: Glycohemoglobin (HgbA1c) 5.9 % (4.0-5.6)
--- NOTE | 2024-05-14 11:40 | W.PN.HOSP.TC ---
Today's Communication/Plan
-
Continue antibiotics
Clear liquids
MRI abdomen
Assessment / Plan
Assessment / Plan
Gen-AAOx3, NAD
HEENT-NC, AT, anicteric, clear oral mm
Neck-supple
CV-reg, no M, +S1/S2
Lungs-clear B/L
Abd-soft, NT, ND
Ext-no edema
Musculoskeletal-no cyanosis, clubbing
Skin-warm and dry
Neuro-grossly non-focal
Psych-calm, cooperative
Acute sigmoid diverticulitis -first episode in his lifetime. Now on clear liquids. Continue antibiotics. Complicated by 1.7 cm abscess, appears too small to drain. Appreciate colorectal surgery input.
Outpatient colonoscopy in 2 months.
Other incidental findings noted on CT scan including splenomegaly, hepatomegaly and hepatic fatty infiltration, mild retroperitoneal lymphadenopathy. Lymphadenopathy likely reactive.
Hypokalemia -will replete. Check magnesium.
Hyponatremia -present on admission, resolved.
DM2 with hyperglycemia -hemoglobin A1c 5.9%. Weight loss is the pfeiffer. On metformin at home.
Elevated liver enzymes - primarily transaminases. Workup in progress. GI consulted. MRI abdomen ordered.
Thrombocytopenia -present on admission, resolved.
Essential hypertension -stable.
Hyperlipidemia - hold atorvastatin in light of elevated liver enzymes.
Obesity due to excess calories
Full code
Anticipated Discharge: 24 - 48 hours
Subjective/Interval History
-
Date of Service: May 14, 2024
Patient seen and examined. Overall feeling somewhat better. No complaints.
Objective Data
-
Labs:
Laboratory Results
05/14/24
06:30
WBC 8.5
Hgb 12.9 L
Hct 37.7 L
Plt Count 132
PT 14.7 H
INR 1.10
Sodium 137
Potassium 3.3 L
Chloride 99
Carbon Dioxide 28
BUN 12
Creatinine 0.9
Glucose 130 H
Calcium 8.0 L
Total Bilirubin 1.9 H D
AST 320 H
ALT 283 H
Alkaline Phosphatase 126
Vital Signs:
Vital Signs
Temp Pulse Resp BP Pulse Ox
98.7 F 79 18 110/62 95
05/14/24 07:10 05/14/24 08:09 05/14/24 07:10 05/14/24 08:09 05/14/24 07:10
I&O
05/13/24 05/14/24 05/15/24
06:59 06:59 06:59
Intake Total 1600 / 1600
Balance 1600 / 1600
Review of Systems
-
History Source: Patient
All other systems: Reviewed and negative
[2024-05-14 12:03] LABS: Glucose - Point of Care 174 mg/dl (70-99)
[2024-05-14 12:20] LABS: Absolute Neutrophils -Man Diff 2.6 10^3/uL (1.4-6.5); Atypical Lymphocytes 33 %; Band Neutrophils 2 % (0-3); Eosinophils 5 % (0-6); Lymphocytes 13 % (20-51); Monocytes 17 % (2-9); Segmented Neutrophils 29 % (42-75)
[2024-05-14 12:21] LABS: Metamyelocytes 1 % (-); Normal RBC Morphology Yes; Platelets Checked Yes; Total Cells Counted 100
[2024-05-14] MEDS: NOVOLOG FLEXPEN-LOW RESISTANCE 1 UNITS SC (12:23)
[2024-05-14] MEDS: KCL 40 MEQ PO (12:24)
[2024-05-14] MEDS: UNASYN IV ×2 (12:24→17:36)
[2024-05-14 12:43] LABS: Magnesium 2.2 mg/dl (1.6-2.3)
--- NOTE | 2024-05-14 12:52 | CM ---
Pt seen bedside. Pt lives w/ girlfriend in a [facility]- 7 steps to enter.
Independent. Denies DME use
No rehab hx
No VN/PT hx
Address, point of contacts and insurance verified
PCP: Dr. Flor Orlando
Pharmacy: [facility]
Per pt, he will have private transport at d/c
Plan: Home; no needs anticipated
[2024-05-14 16:37] LABS: Glucose - Point of Care 106 mg/dl (70-99)
[2024-05-14] MEDS: LOVENOX 40 MG SC (17:36)
[2024-05-14] MEDS: KCL 20 MEQ PO (20:37)
[2024-05-14 22:08] LABS: Glucose - Point of Care 111 mg/dl (70-99)
[2024-05-14 23:19] VITALS: BP 103/61
[2024-05-15] MEDS: UNASYN IV ×3 (00:16→12:36)
[2024-05-15 07:00] VITALS: BP 111/64
[2024-05-15 08:27] LABS: Glucose - Point of Care 97 mg/dl (70-99)
--- NOTE | 2024-05-15 08:32 | W.PN.CRS1 ---
Today's Communication / Plan
-
low residue
will s/o
Assessment/Plan
-
Sigmoid diverticulitis (1st episode) with 1.7 intramural abscess.
Afebrile for 24 hours, WBC pending
-Continue to trend labs
-Advance diet to low residue
-No role for surgery at this time
-Continue IV antibiotics
-Eventual colonoscopy in an outpatient setting
-Will sign off. Follow up in the office with Dr. Ivan in a few weeks. Please contact us if further surgical issues arise.
Subjective Data
Subjective Data
Date of Service: May 15, 2024
Patient states he had no issues overnight. He is having gas and bowel movements. He denies nausea or vomiting. He is not that hungry. He drank some clears yesterday but he has a bad taste in his mouth.
Objective Data
-
Vital Signs
Temp Pulse Resp BP Pulse Ox
99.9 F 88 18 103/61 100
05/14/24 23:19 05/14/24 23:19 05/14/24 23:19 05/14/24 23:19 05/14/24 23:19
Intake & Output
05/14/24 05/15/24 05/16/24
06:59 06:59 06:59
Intake Total 1600 / 1600 2220 / 2220
Balance 1600 / 1600 2220 / 2220
Intake:
Oral fluids 480 / 480
IV fluids (Total) 1500 / 1500 1500 / 1500
IV piggybacks 100 / 100 240 / 240
Other:
Number of approximated MODERATE 3 3
amounts of urine
Lab Results
05/14/24 06:30
Physical Exam
-
General: No Acute Distress and AOx3
Abdomen: Soft, Non Distended and Non Tender
Skin: Warm and Dry
[2024-05-15] MEDS: NOVOLOG FLEXPEN-LOW RESISTANCE SC ×2 (08:41→12:36)
[2024-05-15] MEDS: MOTRIN 400 MG PO (08:45)
[2024-05-15] MEDS: KCL 20 MEQ PO ×2 (08:46→11:15)
[2024-05-15] MEDS: PROCARDIA XL (EXTENDED RELEASE) 30 MG PO (08:46)
[2024-05-15 08:50] LABS: ALT (SGPT) 239 U/L (0-50); AST (SGOT) 237 U/L (17-59); Albumin 2.8 g/dl (3.5-5.0); Alkaline Phosphatase 116 U/L (38-126); Blood Urea Nitrogen 6 mg/dl (9-20); Calcium 7.9 mg/dl (8.4-10.2); Carbon Dioxide 28 mmol/L (22-30); Chloride 101 mmol/L (98-107); Direct Bilirubin 1.1 mg/dl (0.0-0.4); Estimated Creatinine Clearance > 125 ml/min; Glucose 107 mg/dl (70-99); Potassium 3.4 mmol/L (3.5-5.1); Sodium 138 mmol/L (135-145); Total Bilirubin 1.8 mg/dl (0.2-1.3); Total Protein 6.1 g/dl (6.3-8.2); eGFR > 60.00
--- NOTE | 2024-05-15 09:07 | W.PN.GI.CBS2 ---
Today's Communication / Plan
-
Continue abx, advance diet, check additional serologies
Assessment / Plan
-
38 y.o. male w/ PMhx HTN, DM2, Hx TIA admitted with sigmoid diverticulitis w/ abscess and elevated liver enzymes.
#Acute Complicated Sigmoid Diverticulitis w/ small abscess
-WBC 10, 4 bands
-BCx ?? never sent
-c/w Zosyn
-Colorectal surgery consulted, suspect abscess too small to be drained-- continue with abx; advance to low residue diet
-will require colonoscopy 6-8 weeks following resolution of acute diverticulitis
-Antiemetics, prn
#Elevated Liver enzymes
-Predominantly hepatocellular, T. bili 2.4, AST 390, ALT 323, alk phos 138--> all improving
-given clinical scenario, would expect to find liver abscesses, however, not seen on imaging
-MRI/MRCP performed yesterday showed hepatomegaly, severe hepatic steatosis, and mild portacaval and retroperitoneal lymphadenopathy, nonspecific and similar to prior CT
-prior labs from PCP reviewed-- slightly abnormal alk phos previously (12/2023)- 43; otherwise, LFTs wnl
-hepatitis serologies pending
-ceruloplasmin pending
-check autoimmune serologies
#Hepatomegaly
#Hepatic Steatosis
-likely 2/2 underlying metabolic disease, has several risk factors including obesity, HTN, DM2
-outpatient f/u for formal workup and assessment of fibrosis
Subjective
Subjective
Date of Service: May 15, 2024
Patient seen in follow-up, nausea improved. Seen by CRS-- cleared to advance to low residue diet.
Objective
Data Reviewed
Laboratory Data:
Laboratory Results
05/14/24 06:30
05/15/24 06:23
Laboratory Results
PT 14.7 Sec (11.4-14.6) H 05/14/24 06:30
INR 1.10 05/14/24 06:30
Magnesium 2.2 mg/dl (1.6-2.3) 05/14/24 06:30
Total Bilirubin 1.8 mg/dl (0.2-1.3) H 05/15/24 06:23
AST 237 U/L (17-59) H 05/15/24 06:23
ALT 239 U/L (0-50) H 05/15/24 06:23
Alkaline Phosphatase 116 U/L (38-126) 05/15/24 06:23
Lipase 142 U/L (23-300) 05/13/24 10:25
Vital Signs and I&O:
Vital Signs
Temp Pulse Resp BP Pulse Ox
99.9 F 88 18 111/46 100
05/14/24 23:19 05/14/24 23:19 05/14/24 23:19 05/15/24 08:46 05/14/24 23:19
I&O
05/14/24 05/15/24 05/16/24
06:59 06:59 06:59
Intake Total 1600 / 1600 2220 / 2220
Balance 1600 / 1600 2220 / 2220
Physical Exam
Physical Exam
HEENT: Anicteric and Moist mucous membranes
GI: Soft, Non Distended, Tender (mild TTP in LLQ, no rebound or guarding) and Non Tender
--- NOTE | 2024-05-15 10:10 | W.PN.HOSP.TC ---
Addendum entered and electronically signed by Kong De Los Santos DO 05/16/24 13:54:
Sepsis due to acute diverticulitis
Original Note:
Today's Communication/Plan
-
Low residue diet
Discharge later today if stable
Assessment / Plan
Assessment / Plan
Gen-AAOx3, NAD, obese
HEENT-NC, AT, anicteric, clear oral mm
Neck-supple
CV-reg, no M, +S1/S2
Lungs-clear B/L
Abd-soft, NT, ND
Ext-no edema
Musculoskeletal-no cyanosis, clubbing
Skin-warm and dry
Neuro-grossly non-focal
Psych-calm, cooperative
Acute sigmoid diverticulitis -first episode in his lifetime. Diet advanced to low residue. Continue antibiotics. Complicated by 1.7 cm abscess, appears too small to drain. Appreciate colorectal surgery input.
Outpatient colonoscopy in 2 months.
Other incidental findings noted on CT scan including splenomegaly, hepatomegaly and hepatic fatty infiltration, mild retroperitoneal lymphadenopathy. Lymphadenopathy likely reactive.
Hypokalemia -magnesium was normal. Continue repletion at increased dose. BMP in 1 week as outpatient.
Hyponatremia -present on admission, resolved.
DM2 with hyperglycemia -hemoglobin A1c 5.9%. Weight loss is the pfeiffer. On metformin at home.
Elevated liver enzymes - primarily transaminases. MRI of the abdomen completed, showing severe hepatic steatosis, hepatosplenomegaly, mild lymphadenopathy. Weight loss recommended. Outpatient follow-up with GI. Viral hepatitis panel pending.
Ceruloplasmin pending.
Thrombocytopenia -present on admission, resolved.
Essential hypertension -stable.
Hyperlipidemia - hold atorvastatin in light of elevated liver enzymes.
Obesity due to excess calories
Full code
Dispo -discharge later today if tolerates diet. Outpatient follow-up with GI service, PCP. Outpatient CT scan to follow-up on abscess.
35 minutes spent in discharge process.
Anticipated Discharge: Today
Subjective/Interval History
-
Date of Service: May 15, 2024
Patient seen and examined. Tolerating diet so far. Complaining of low-grade fever.
Objective Data
-
Labs:
Laboratory Results
05/15/24
06:23
Sodium 138
Potassium 3.4 L
Chloride 101
Carbon Dioxide 28
BUN 6 L
Creatinine 0.8
Glucose 107 H
Calcium 7.9 L
Total Bilirubin 1.8 H
AST 237 H
ALT 239 H
Alkaline Phosphatase 116
Vital Signs:
Vital Signs
Temp Pulse Resp BP Pulse Ox
99.6 F 78 20 111/46 96
05/15/24 07:00 05/15/24 07:00 05/15/24 07:00 05/15/24 08:46 05/15/24 07:00
I&O
05/14/24 05/15/24 05/16/24
06:59 06:59 06:59
Intake Total 1600 / 1600 0 / 2220
Balance 1600 / 1600 2220 / 2220
Review of Systems
-
History Source: Patient
All other systems: Reviewed and negative
[2024-05-15] MEDS: ZESTRIL PO (11:15)
[2024-05-15 11:55] LABS: Glucose - Point of Care 90 mg/dl (70-99)
--- NOTE | 2024-05-15 13:41 | W.DS.TRANS ---
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
-
Discharge Instructions:
Discharge Diagnosis/Procedures Acute diverticulitis, hepatic steatosis,
hypokalemia
Diet Low Residue
Activity As tolerated
Driving Restrictions As prior to admission
Bathing Restrictions None
Blood Work BMP next week with your primary care doctor
Instructions:
Stand-Alone Forms:
Changes to Home Medications: No
Discharge Medications:
DC Medications w/original date entered in [employer]
cyanocobalamin (vitamin B-12) 1,000 mcg tablet 1,000 mcg PO DAILY #30 tabs 08/03/21
nifedipine 30 mg tablet,extended release 30 mg PO DAILY #30 tabs 08/03/21
lisinopril 20 mg tablet 20 mg PO DAILY 05/13/24
omega 9-vmh-tmu-fish oil 1,000 mg (120 mg-180 mg) capsule (Fish Oil) 1 cap PO DAILY 05/13/24
therapeutic multivitamin 1 tab PO DAILY 05/13/24
amoxicillin 875 mg-potassium clavulanate 125 mg tablet 1 tab PO BID #20 tabs 05/15/24
potassium chloride 20 mEq tablet,extended release(part/cryst) 40 meq (2 x 20 mEq) PO BID #20 tabs 05/15/24
Home Medication Changes
Pending Results: No
--- NOTE | 2024-05-15 14:02 | CM ---
Chart reviewed. Pt will d/c today
Pt prev. stated he will have private transport at d/c
Pt will have Outpatient follow-up with GI service, PCP and outpatient CT scan to follow-up on abscess per hospitalist
No CM needs identified at this time
Plan: Home; no needs
--- NOTE | 2024-05-15 14:16 | PN.CDI ---
CDI
- -
CDI:
Physician Documentation Request
Admit Date: 05/13/24 15:49
Dear Doctor Filiberto,
Patient presented with Acute sigmoid diverticulitis
T max 05/13 100.4, presenting heart rate 82-100, presenting respiratory rate 12-34 WBC 10.1
Please clarify which of the following most accurately describes the status of the patient's infection:
Sepsis
- Systemic manifestations of infection, with 2 or more SIRS criteria which include:
- Fever >100.4 degrees F or hypothermia < 96.8 degrees F
- Leukocytosis - WBC > 12,000 or leukopenia - WBC < 4,000 or > 10% bands
- Tachycardia > 90 beats per minute
- Tachypnea - RR > 20 breaths per minute or PaCO2 , 32mmHg
Source: [employer] Manual 2013
Localized Infection Only, Without Systemic Illness
Other
Use of terms such as suspected, likely, concern for, or probable (associated with a specific diagnosis that is being evaluated, monitored, or treated as if it exists) are acceptable and can be coded in the inpatient setting, when documented at the
time of discharge.
Thank you,
Yi Hu RN, BSN
CDI Specialist
tiger text
Please use your independent medical judgment in providing your response.
[2024-05-15 14:30] VITALS: BP 108/79
[2024-05-15 18:23] LABS: Hepatitis B Surface Antigen Negative (Negative)
[2024-05-15 18:41] LABS: Hepatitis B Core Ab, Total Negative (Negative); Hepatitis C Antibody Negative (Negative)
[2024-05-15 19:47] LABS: Hepatitis A IgM Antibody Negative (Negative)
[2024-05-16 17:03] LABS: Ceruloplasmin 35 mg/dL (15-30)
== END 2024-05-15 15:30 | disposition home or self-care (01) | DRG 872 ==
LOC: 4 WEST ACU 15:49
PROVIDERS: Registered Nurse; ADMITTING PHYSICIAN Internal Medicine; ATTENDING PHYSICIAN Hospitalist; CONSULT PHYSICIAN Internal Medicine; CONSULT PHYSICIAN Surgery; EMERGENCY PHYSICIAN Emergency Medicine; FAMILY PHYSICIAN Physician Assistant Medical
DX: A41.9 Sepsis, unspecified organism (principal); K57.20 Diverticulitis of large intestine with perforation and abscess without bleeding; E87.1 Hypo-osmolality and hyponatremia; E87.6 Hypokalemia; I10 Essential (primary) hypertension; E11.9 Type 2 diabetes mellitus without complications; E78.00 Pure hypercholesterolemia, unspecified; E66.09 Other obesity due to excess calories; Z68.36 Body mass index [BMI] 36.0-36.9, adult; K76.0 Fatty (change of) liver, not elsewhere classified
CPT/HCPCS: 71046; 74177; 74183; 80053; 80143; 80179; 82248; 82390; 82962; 83036; 83690; 83735; 85025; 85610; 86704; 86705; 86709; 86803; 87340; 96365; 96375; 99285; A9585; Q9967

== ENCOUNTER 2024-05-26 22:13 | Inpatient (IN) | payer OTHER, SELFPAY ==
[2024-05-26] VITALS (12 sets, daily range): BP systolic 91–136; BP diastolic 56–84; BMI 35.5
[2024-05-26 16:57] LABS: ALT (SGPT) 116 U/L (0-50); AST (SGOT) 109 U/L (17-59); Albumin 4.8 g/dl (3.5-5.0); Alkaline Phosphatase 69 U/L (38-126); Blood Urea Nitrogen 11 mg/dl (9-20); Carbon Dioxide 24 mmol/L (22-30); Chloride 100 mmol/L (98-107); Glucose 104 mg/dl (70-99); Hematocrit 49.7 % (39.0-52.0); Hemoglobin 16.6 g/dL (13.0-18.0); Mean Corp Hgb Conc. 33.4 g/dL (33.0-37.0); Mean Corpuscular Hgb 29.8 pg (27.0-31.0); Mean Corpuscular Volume 89.2 fL (80.0-94.0); Mean Platelet Volume 10.6 fL (7.4-10.4); Platelet Count 308 10^3/uL (130-400); Potassium 4.9 mmol/L (3.5-5.1); Red Blood Cell Count 5.57 10^6/uL (4.70-6.10); Red Cell Dist. Width 13.2 % (11.5-14.5); Sodium 139 mmol/L (135-145); Total Bilirubin 1.3 mg/dl (0.2-1.3); Total Protein 8.8 g/dl (6.3-8.2); eGFR > 60.00
[2024-05-26 16:58] LABS: Lactic Acid 3.7 mmol/L (0.7-2.0)
[2024-05-26 17:22] LABS: % Basophils 0.8 % (0-2); % Eosinophils 0.2 % (0-6); % Immature Granulocytes 0.3 % (0-0.5); % Lymphocytes 58.8 % (20.5-51.1); % Monocytes 9.8 % (1.7-9.3); % Neutrophils 30.1 % (42.2-75.2); Absolute Basophils 0.2 10^3/uL (0-0.2); Absolute Immature Granulocytes 0.1 10^3/uL (0-0.05); Absolute Lymphocytes 11.2 10^3/uL (1.2-3.4); Absolute Monocytes 1.9 10^3/uL (0.1-0.6); Absolute Neutrophils 5.7 10^3/uL (1.4-6.5); Nucleated Red Blood Cells % 0 % (-)
[2024-05-26] MEDS: ZOSYN 100 IV (18:31)
[2024-05-26] MEDS: NSS 1000 IV (18:31)
[2024-05-26] MEDS: ZOFRAN 4 MG IV (18:31)
[2024-05-26] MEDS: TORADOL 30 MG IV (18:31)
--- NOTE | 2024-05-26 18:41 | ED.GENMED ---
History of Present Illness
General
Chief Complaint: Abdominal Symptoms
Time Seen by Provider: 05/26/24 17:50
History of Present Illness
History of Present Illness:
38-year-old male with recent history of diverticulitis presenting to the emergency department for concern of fever and abdominal pain. Patient recently admitted to the hospital from 05/13 to 05/15 for acute sigmoid diverticulitis with small abscess
collection. Patient had been discharged on antibiotics. Notes that he has been getting low-grade fevers since discharge. He finished his antibiotics yesterday and this morning woke up with a fever that has been going away. Also reports increased
left lower quadrant abdominal pain and nausea with vomiting. Denies any history of abdominal surgeries in the past. Prior to this episode, denies history of diverticulitis. Denies chest pain or difficulty breathing. Denies changes in stool.
Denies additional acute medical complaints
Past History
Past History
ED Past Medical History: HTN and NIDDM
ED Past Surgical History: None
Social History
Tobacco: Non-smoker
Alcohol: Occasional
Drug: None
Personal: Single
Living: with roommate
Employment: Employed
Family History
Family History: Early CAD and Other ([place] in father 30's and GF; GM with brain tumor)
Phy Exam
Physical Exam
Physical Exam:
General: dry mucous membranes
HEENT: protecting airway
Neck: appears supple
CV: Tachycardic, regular rhythm, no evidence of cyanosis
Resp: No accessory muscle use, no increased work of breathing, lungs clear to auscultation bilaterally
Abd: Soft and non-distended, mild tenderness to the left lower quadrant without rebound or guarding
Extremities: No deformities, no swelling, no erythema
Neuro: alert, no focal neurologic deficit
: deferred
Rectal: deferred
Psych: Normal affect
Skin: Intact
Course
Orders/Labs/Results
Orders:
Orders
05/26/24 16:32
Complete Blood Count/With Diff Urgent
Comprehensive Metabolic Panel Urgent
Lactic Acid Urgent
05/26/24 18:07
CT Abd/pelvis W Iv Cont Urgent
Comment:
Reason For Exam: recent diverticulitis, pain back with c/o sepsis
0.9% Sodium Chloride 1000 ml [Nss] 1,000 ml IV BOLUS
Ketorolac [Toradol] 30 mg IV NOW STA
Ondansetron Injectable [Zofran] 4 mg IV NOW STA
Piperacillin/Tazo 4.5 Gram [Zosyn] 4.5 gram in 100 ml IV NOW
05/26/24 18:35
PTT Urgent
Prothrombin Time Urgent
Blood Culture Q30M
KAMLESH Source: Blood/Venous
Specimen Description:
Blood Culture Q30M
KAMLESH Source: Blood/Venous
Specimen Description:
Abnormal Lab Results
05/26/24 05/26/24
16:32 18:35
WBC 19.0 H 10^3/uL
(4.8-10.8)
MPV 10.6 H fL
(7.4-10.4)
Abs Immat Gran (auto) 0.1 H 10^3/uL
(0-0.05)
Absolute Lymphs (auto) 11.2 H 10^3/uL
(1.2-3.4)
Absolute Monos (auto) 1.9 H 10^3/uL
(0.1-0.6)
Neutrophils % 30.1 L %
(42.2-75.2)
Lymphocytes % 58.8 H %
(20.5-51.1)
Monocytes % 9.8 H %
(1.7-9.3)
APTT 35.9 H Sec
(23.4-35.0)
Glucose 104 H mg/dl
(70-99)
Lactic Acid 3.7 H mmol/L
(0.7-2.0)
AST 109 H U/L
(17-59)
ALT 116 H U/L
(0-50)
Total Protein 8.8 H g/dl
(6.3-8.2)
05/26/24 16:32
05/26/24 16:32
Vital Signs
Initial and Last Documented VS:
Initial Vital Signs
Temp Pulse Resp BP Pulse Ox
99.8 F 130 18 136/79 98
05/26/24 16:20 05/26/24 16:20 05/26/24 16:20 05/26/24 16:20 05/26/24 16:20
Last Documented Vital Signs
Temp Pulse Resp BP Pulse Ox
99.4 F 107 29 114/68 92
05/26/24 17:32 05/26/24 19:30 05/26/24 19:30 05/26/24 19:00 05/26/24 19:30
MDM/Problems Addressed
MDM/Problems Addressed:
38-year-old male with recent diagnosis of diverticulitis presenting for worsening abdominal pain and fever. Vital signs on arrival abnormal with elevated heart rate.
On exam, patient is nontoxic, however does appear dehydrated with dry mucous membranes. Patient had screening laboratory analysis prior to my assessment, new leukocytosis and elevated lactic acid. At this time concern for sepsis, likely from
intra-abdominal source. Per recent admission, patient did have a small intra-abdominal abscess. Concern for worsening diverticulitis with possible worsening abscess. Will add blood cultures and start patient on broad-spectrum antibiotics. Will
start patient on IV fluids. Lactic acid is less than 4 and blood pressure remained stable without concern for severe sepsis or septic shock. Will repeat CT abdominal imaging.
20:30 -CT shows persistent diverticulitis, however no significant worsening. Given concern for sepsis and failure of outpatient therapy, feel patient warrants admission. Patient will be admitted to hospital service
*Critical Care Note
Total Time (30-74mins, 75-104mins- exclusive of procedures): Not Applicable
ED Attending Note
-
Portions of this chart may have been created with voice recognition software.� Occasional wrong word or��sound alike� substitutions may have occurred due to the inherent limitations of voice recognition software.
Discharge Plan
Departure
Prescriptions:
No Action
cyanocobalamin (vitamin B-12) 1,000 MCG tablet
1,000 mcg PO DAILY Qty: 30 0RF
nifedipine 30 MG tablet extended release
30 mg PO DAILY Qty: 30 0RF
lisinopril 20 mg Tablet
20 mg PO DAILY
therapeutic multivitamin Tablet
1 tab PO DAILY
omega 9-vbs-rpt-fish oil [Fish Oil] 1,000 (120-180) mg Capsule
1 cap PO DAILY
metformin 500 mg tablet
500 mg PO BID
atorvastatin 10 mg tablet
10 mg PO DAILY
Referrals:
Flor Casiano PA [Family Provider] -
Interventions
Interventions:
*Risk Screen - Suicide Last Done: 05/26/24 16:20
*Neglect/Abuse Screening Last Done: 05/26/24 16:20
ZS-Twrmtl-Hpunxmteib Assessment Last Done: 05/26/24 17:10
Discharge Date and Time
Print Language: YI
[2024-05-26 18:52] LABS: APTT 35.9 Sec (23.4-35.0); INR 1.05
--- NOTE | 2024-05-26 22:15 | HPS.HSE ---
Family Physician
-
Family Physician: Flor Casiano
Chief Complaint
-
Fever and abdominal pain
History of Present Illness
This is a 38-year-old with past medical history of gfr-[id number]-[id number] diabetes, hyperlipidemia and hypertension who was recently admitted with acute diverticulitis status post antibiotics and discharged to complete oral antibiotics presents again
with pain fevers nausea and vomiting.
Patient was seen here 2 weeks ago was admitted for acute diverticulitis. Was on IV antibiotics and tape after oral antibiotics. He was discharged on the and finished his oral antibiotics yesterday. At the time of his admission the patient
did have a small abscess. Was seen by correction[facility] and did not require drainage at that time. Patient reported that he felt well while was on antibiotics was able to tolerate p.o. and had essentially only some nausea and intermittent vomiting.
He reports acute onset of fevers and chills as well as sweats once stopping antibiotics. Reports nonbloody and nonbilious emesis. There is no diarrhea. Had a temp of over 100.1 at home.
In the ED today the patient had a temp of 99.4, blood pressure was 106/60, tachycardia to 109. He has leukocytosis to 19,000 with a lactic acid of 3.7. CT of the abdomen pelvis showing persistent soft tissue stranding associated with the sigmoid
colon, consistent with mild acute diverticulitis, a small intramural abscess measuring approximately 1.4 cm, previously measuring 1.7 cm, no perforation no free here. Trace fluid in the pelvis.
Medical History
Past Medical History
Past Medical History: Reports NIDDM
Past Surgical History: Reports None
Social History
Tobacco: Non-smoker
Alcohol: Occasional
Drug: None
Employment: Employed
Family History
Family History: Not pertinent
Allergies / Home Medications
Allergies reflects when Allergies were last updated in [facility].
Home Medications with original date entered in [facility]
Allergy/Medication List:
Allergies
Allergy/AdvReac Type Severity Reaction Status Date / Time
No Known Allergies Allergy Verified 05/26/24 16:25
Home Medications
cyanocobalamin (vitamin B-12) 1,000 mcg tablet 1,000 mcg PO DAILY #30 tabs 08/03/21
nifedipine 30 mg tablet,extended release 30 mg PO DAILY #30 tabs 08/03/21
lisinopril 20 mg tablet 20 mg PO DAILY 05/13/24
omega 6-wpu-bgt-fish oil 1,000 mg (120 mg-180 mg) capsule (Fish Oil) 1 cap PO DAILY 05/13/24
therapeutic multivitamin 1 tab PO DAILY 05/13/24
atorvastatin 10 mg tablet 10 mg PO DAILY 05/26/24
metformin 500 mg tablet 500 mg PO BID 05/26/24
Review of Systems
-
History Source: Patient
Constitutional: Reports Fever
EENT: Reports No Symptoms
Abdomen/GI: Reports Nausea and Vomiting
: Reports No Symptoms
Musculoskeletal: Reports No Symptoms
Skin: Reports No Symptoms
Neurological: Reports No Symptoms
Endocrine: Reports No Symptoms
Hematologic/Lymphatic: Reports No Symptoms
Psych: Reports No Symptoms
Physical Exam
Vital Signs
Vital Signs
Temp Pulse Resp BP Pulse Ox
99.4 F 109 13 106/64 98
05/26/24 17:32 05/26/24 20:45 05/26/24 20:45 05/26/24 20:00 05/26/24 20:45
Physical Exam
General: Well Developed, Well Nourished, Conversant and Pain
HEENT: NormoCephalic, Anicteric, Moist mucous membranes and Atraumatic
Respiratory: Clear
Cardiac: S1/S2
Breast: Deferred by me
GI: Soft, Non Distended, Normal Bowel Sounds and Tender
Rectal: Deferred by Provider
Genito-urinary: Deferred by me
Musculoskeletal: No Clubbing, No Cyanosis and No Edema
Skin: Warm
Neuro: AO x 3
Hematologic/Lymphatic: No Lymphadenopathy
Psych: Calm
Laboratory Results
-
05/26/24 16:32
05/26/24 16:32
Laboratory Results
PT 14.0 Sec (11.4-14.6) 05/26/24 18:35
INR 1.05 05/26/24 18:35
APTT 35.9 Sec (23.4-35.0) H 05/26/24 18:35
Lactic Acid 3.7 mmol/L (0.7-2.0) H 05/26/24 16:32
Total Bilirubin 1.3 mg/dl (0.2-1.3) 05/26/24 16:32
AST 109 U/L (17-59) H 05/26/24 16:32
ALT 116 U/L (0-50) H 05/26/24 16:32
Alkaline Phosphatase 69 U/L (38-126) 05/26/24 16:32
Data Reviewed
-
CT Scan: Report Reviewed by me
Lab Data: Labs Reviewed by me
Old Records: Reviewed
Impression/Plan
-
IMPRESSION:
Persistent diverticulitis with essential unchanged contained abscess without perforation. New leukocytosis and elevated lactic acid levels.
PLAN:
Diverticulitis
- admit to med surg
- blood cultures
- zosyn for now
- npo except sips and oral meds
- IV fluids, pain control and antiemetics
- colorectal consult
DM II
- hold metformin
- sliding scale insulin
HTN
- hld lisinopril
- continue nifedipine
DVT PPX - lovenox sq
Code status - full code
[2024-05-27] VITALS (8 sets, daily range): BP systolic 94–133; BP diastolic 46–75; BMI 35.2
[2024-05-27 01:24] LABS: Glucose - Point of Care 108 mg/dl (70-99)
[2024-05-27] MEDS: LR 1000 IV ×2 (01:29→11:07)
[2024-05-27] MEDS: ZOSYN 50 IV ×5 (01:39→23:14)
[2024-05-27 05:46] LABS: Blood Urea Nitrogen 14 mg/dl (9-20); Calcium 8.4 mg/dl (8.4-10.2); Carbon Dioxide 24 mmol/L (22-30); Chloride 104 mmol/L (98-107); Estimated Creatinine Clearance 116 ml/min; Glucose 113 mg/dl (70-99); Magnesium 2.1 mg/dl (1.6-2.3); Potassium 4.7 mmol/L (3.5-5.1); Sodium 137 mmol/L (135-145); eGFR > 60.00
[2024-05-27 05:47] LABS: Hematocrit 38.3 % (39.0-52.0); Hemoglobin 13.1 g/dL (13.0-18.0); Mean Corp Hgb Conc. 34.2 g/dL (33.0-37.0); Mean Corpuscular Volume 87.6 fL (80.0-94.0); Mean Platelet Volume 11.1 fL (7.4-10.4); Platelet Count 200 10^3/uL (130-400); Red Blood Cell Count 4.37 10^6/uL (4.70-6.10); Red Cell Dist. Width 13.2 % (11.5-14.5); White Blood Cell Count 11.1 10^3/uL (4.8-10.8)
--- NOTE | 2024-05-27 07:54 | W.PN.HOSP.TC ---
Today's Communication/Plan
-
N.p.o.
IV fluids
IV antibiotics
Antiemetics
Stop NSAIDs
GI consult
Colorectal surgery consult
Assessment / Plan
Assessment / Plan
Gen-AAOx3, NAD
HEENT-NC, AT, anicteric, clear oral mm
Neck-supple
CV-reg, no M, +S1/S2
Lungs-clear B/L
Abd-soft, NT, ND
Ext-no edema
Musculoskeletal-no cyanosis, clubbing
Skin-warm and dry
Neuro-grossly non-focal
Psych-calm, cooperative
Intractable vomiting -etiology unclear. Differential diagnosis includes gastritis, peptic ulcer disease, adverse drug reaction, etc. Consult GI.
Sepsis -source likely GI related, recent admission with acute diverticulitis complicated by abscess. Blood culture sent, continue IV Zosyn. Leukocytosis improving. Afebrile today.
Lactic acidosis noted, likely due to sepsis.
Subacute sigmoid diverticulitis/abscess -recent admission and discharge May 16. Completed course of Augmentin on May 25. Abdominal pain worsened May 26.
CT abdomen/pelvis shows mild acute sigmoid diverticulitis. Small intramural abscess has decreased in size, 1.4 cm. No perforation. No free air.
Continue antiemetics, keep n.p.o., IV fluids. Colorectal surgery consulted.
Stop NSAIDs, potential risk of perforation in the setting of diverticulitis.
DM2 without hyperglycemia -glucose 113 this morning. Hold metformin. Use low resistance NovoLog scale.
Essential hypertension -relative hypotension noted. Hold nifedipine, lisinopril.
Hyperlipidemia -hold atorvastatin given elevated LFTs.
Elevated LFTs -severe hepatic steatosis, hepatosplenomegaly and lymphadenopathy noted on recent abdominal MRI. Weight loss is the pfeiffer. Needs outpatient follow-up.
Obesity due to excess calories
Full code
Anticipated Discharge: 24 - 48 hours
Subjective/Interval History
-
Date of Service: May 27, 2024
Patient seen and examined. Currently feeling better than earlier this morning. Did have nausea and dry heaves earlier.
Objective Data
-
Labs:
Laboratory Results
05/27/24
04:59
WBC 11.1 H
Hgb 13.1 D
Hct 38.3 L
Plt Count 200 D
Sodium 137
Potassium 4.7
Chloride 104
Carbon Dioxide 24
BUN 14
Creatinine 1.2
Glucose 113 H
Calcium 8.4 D
Vital Signs:
Vital Signs
Temp Pulse Resp BP Pulse Ox
98.5 F 76 18 105/54 95
05/27/24 07:00 05/27/24 07:00 05/27/24 07:00 05/27/24 07:00 05/27/24 07:00
Review of Systems
-
History Source: Patient
All other systems: Reviewed and negative
--- NOTE | 2024-05-27 09:16 | PTCARENOTE ---
pt aaox3. states slight pain in left lower abd with mild nausea. no pain med wanted at this time.
[2024-05-27 11:14] LABS: Glucose - Point of Care 91 mg/dl (70-99)
--- NOTE | 2024-05-27 11:27 | CON.CRS ---
Consultation
-
Date/Time Consultation Requested: 05/27/2024, 01:00
Date/Time Consultation Performed: 05/27/2024, 09:00
Requesting Provider: Vasiliy Elliott MD
Performing Provider: Art Ivan MD
Reason for Consultation: diverticulitis
Medical History
-
Chief Complaint: Abdominal pain
History of Present Illness:
38-year-old male presents to [facility] ER complaining of ongoing abdominal pain. He was recently admitted from 05/13/2024 through 05/15/2024 due to sigmoid diverticulitis with a 1.7 cm intramural abscess. The patient had overall improved
and he was discharged on home antibiotics. He finished these about 3 days ago. The patient states he never really got better after discharge. He was vomiting at home and had a fever and at 1 point was having chills. He feels bloated. He does
not feel that tender. He is having bowel movements. WBC in the ER is 11.1. He has remained afebrile. His vital signs are normal. CT of the abdomen and pelvis shows mild persistent soft tissue stranding associated with the sigmoid colon,
consistent with mild acute diverticulitis. Similar prior examination. Presumed small intramural abscess measuring approximately 1.4 cm, previously measuring 1.7 cm. No perforation. No free air. Trace free fluid in the pelvis. Given the above
findings, we have been consulted for further surgical opinion.
Past Medical History
Past Medical History: Other (HTN (hypertension-induced neurologic symptoms 08/23), Hypercholesterolemia and NIDDM)
Past Surgical History: None
Social History
Tobacco: Non-Smoker
Alcohol: None
Drug: None
Family History
Family History: Reviewed & Not Pertinent
Allergies / Home Medications
Allergy/AdvReac Type Severity Reaction Status Date / Time
No Known Allergies Allergy Verified 05/26/24 16:25
�Medication �Instructions �Recorded �Confirmed �Type
cyanocobalamin (vitamin B-12) 1,000 mcg PO DAILY #30 tabs 08/03/21 05/26/24 Rx
1,000 mcg tablet
nifedipine 30 mg tablet,extended 30 mg PO DAILY #30 tabs 08/03/21 05/26/24 Rx
release
lisinopril 20 mg tablet 20 mg PO DAILY 05/13/24 05/26/24 History
omega 4-xpa-ipa-fish oil 1,000 mg 1 cap PO DAILY 05/13/24 05/26/24 History
(120 mg-180 mg) capsule (Fish Oil)
therapeutic multivitamin 1 tab PO DAILY 05/13/24 05/26/24 History
atorvastatin 10 mg tablet 10 mg PO DAILY 05/26/24 05/26/24 History
metformin 500 mg tablet 500 mg PO BID 05/26/24 05/26/24 History
Review of Systems
-
History Source: Patient
All other systems: Negative unless noted
Constitutional: Fever and Chills
Abdomen/GI: Vomiting and Pain
A 10 point review of systems was completed, and was negative except as per HPI.
Physical Exam
Vital Signs
Temp 98.5 F 05/27/24 07:00
Pulse 76 05/27/24 07:00
Resp Rate 18 05/27/24 07:00
Blood pressure 105/54 05/27/24 07:00
SaO2 95 05/27/24 07:00
05/26/24 05/27/24 05/28/24
06:59 06:59 06:59
Actual Weight 122 kg
Body Mass Index (BMI) 35.5
Lab Results / Allergies
05/27/24 04:59
05/27/24 04:59
WBC 11.1 10^3/uL (4.8-10.8) H 05/27/24 04:59
Hgb 13.1 g/dL (13.0-18.0) D 05/27/24 04:59
Hct 38.3 % (39.0-52.0) L 05/27/24 04:59
Plt Count 200 10^3/uL (130-400) D 05/27/24 04:59
Abs Immat Gran (auto) 0.1 10^3/uL (0-0.05) H 05/26/24 16:32
Neutrophils % 30.1 % (42.2-75.2) L 05/26/24 16:32
Allergy/AdvReac Type Severity Reaction Status Date / Time
No Known Allergies Allergy Verified 05/26/24 16:25
Physical Exam
General: Well Developed, Well Nourished and No Apparent Distress
GI: Soft, Tender (mild LLQ) and Distended (mild)
Skin: Warm and Dry
Neuro: AO x 3
Psych: Calm
Data Reviewed
-
CT Scan: Image Personally Visualized and interpreted, Report Reviewed by me and Discussed with Patient
Labs: Labs Reviewed by me, Discussed with Physician and Discussed with Patient
Old Records: Reviewed
Assessment / Plan
-
Assessment: Smoldering sigmoid diverticulitis with associated 1.4 cm intramural abscess
Plan:
-No need for urgent surgery at this time. If he worsens he will require a colectomy with colostomy creation.
-N.p.o. with IV fluids
-Continue IV antibiotics
-Recommend ID consult given failure of outpatient antibiotics
-Will follow
--- NOTE | 2024-05-27 11:59 | CON.GI ---
Addendum entered and electronically signed by Jatinder Lopez MD 05/27/24 13:29:
I saw and examined the patient.
The [employer]SE[employer]PL[employer] SALESPERSON or PA's note was reviewed and I agree with the note.
Comment: 38yo male recently admitted with diverticular abscess 1.7cm intramural abscess in sigmoid colon. Treated with abx and finished course, not feeling better. Presents now with persistent sx and CT shows persistent intramural abscess 1.4cm.
He has had nausea and vomiting during this episode that has been episodic. He denies sx prior to this diverticular abscess. He was taking significant Advil prior to admission, but stopped since. No prior EGD
REC:
Suspect n/v is related to diverticular abscess that has not resolved
Management per Colorectal Surgery and ID
Protonix IV given recent NSAIDs
If n/v persists despite rx, then consider EGD
Original Note:
Consultation
-
Date/Time Consultation Requested: 05/27/24 0800
Date/Time Consultation Performed: 05/27/24 1200
Requesting Provider: Kong De Los Santos DO
Performing Provider: JA Arenas, Jatinder Lopez MD
Reason for Consultation: recurrent diverticulitis
Medical History
Chief Complaint / HPI
Chief Complaint: N/V/Diarrhea
History of Present Illness:
Pt is a 38-year-old male with past medical history of TIA in 2021, hypertension, diabetes, obesity, hepatic steatosis with recurrent admission to . He was admitted to 05/13-05/15 with abdominal pain, vomiting and diarrhea. Ct on admission
with diverticulitis with small 1.7 cm abscess along with elevated LFT's. Pt with treated with IV abx then OP Augmentin x 10 day completed on Sunday. He states pain never went away with some period of crampy pain. He also admits to onset of fever
after antibiotic stopped and nausea with vomiting small amount and dry heaves. On return CT was repeated with Mild persistent soft tissue stranding associated with the sigmoid colon, consistent with mild acute diverticulitis with abscess small at
1.4 cm prior 1.7 cm. Also noted HSM and fatty liver with likely reactive adenopathy. Labs notable for WBC 19,000, with elevated AST 109/ALT 116 but lower then prior transaminase elevation last admission. He did complete MRI last admission with LFT
elevation with no liver abscess, HSM, severe hepatic steatosis, mild portacaval retroperitoneal lymphadenopathy nonspecific similar to recent CT.
He otherwise denies dysphagia, GERD, hematemesis, diarrhea, constipation or rectal bleeding. Denies family history of colorectal cancer, advance colon polyps or liver disease. Does admit to taking about 4 tablets of ibuprofen daily prior to
first admission but stopped. Denies any [id number] or herbal supplements. No prior endoscopy or colonoscopy.
Past Medical History
Past Medical History: CVA (TIA), HTN, NIDDM and Other (obesity, hepatomegaly and fatty infiltration, splenomegaly)
Social History
Tobacco: Non-Smoker
Alcohol: Occasional
Drug: None
Personal: Other (girlfriend)
Living: Other (girlfriend )
Employment: Employed
Family History
Family History: Other (no family hx GI issues )
Allergies / Home Medications
Allergy/AdvReac Type Severity Reaction Status Date / Time
No Known Allergies Allergy Verified 05/26/24 16:25
�Medication �Instructions �Recorded
cyanocobalamin (vitamin B-12) 1,000 mcg PO DAILY #30 tabs 08/03/21
1,000 mcg tablet
nifedipine 30 mg tablet,extended 30 mg PO DAILY #30 tabs 08/03/21
release
lisinopril 20 mg tablet 20 mg PO DAILY 05/13/24
omega 3-whf-yaa-fish oil 1,000 mg 1 cap PO DAILY 05/13/24
(120 mg-180 mg) capsule (Fish Oil)
therapeutic multivitamin 1 tab PO DAILY 05/13/24
atorvastatin 10 mg tablet 10 mg PO DAILY 05/26/24
metformin 500 mg tablet 500 mg PO BID 05/26/24
Review of Systems
-
History Source: Patient
Constitutional: Reports Fever and Weight Loss ( 10 lb with GI issues )
EENT: Reports No Symptoms
Respiratory: Reports No Symptoms
Cardiac: Reports No Symptoms
Abdomen/GI: Reports Abdominal Pain, Nausea and Vomiting
: Reports No Symptoms
Musculoskeletal: Reports No Symptoms
Skin: Reports No Symptoms
Neurological: Reports Weakness
Endocrine: Reports No Symptoms
Hematologic/Lymphatic: Reports No Symptoms
Vital Signs
Temp Pulse Resp BP Pulse Ox
98.5 F 76 18 105/54 95
05/27/24 07:00 05/27/24 07:00 05/27/24 07:00 05/27/24 07:00 05/27/24 07:00
Physical Exam
Exam
General: Well Developed, Well Nourished and No Apparent Distress
HEENT: Normocephalic and Anicteric
Respiratory: Clear
Cardiac: Regular Rhythm
GI: Soft, Non Distended and Tender (LLQ low in pelvis )
Musculoskeletal: No Clubbing and No Cyanosis
Skin: Warm and Dry
Neuro: Awake, Alert and AO x 3
Psych: Calm
Results
WBC 11.1 10^3/uL (4.8-10.8) H 05/27/24 04:59
Hgb 13.1 g/dL (13.0-18.0) D 05/27/24 04:59
Hct 38.3 % (39.0-52.0) L 05/27/24 04:59
MCV 87.6 fL (80.0-94.0) 05/27/24 04:59
Plt Count 200 10^3/uL (130-400) D 05/27/24 04:59
Absolute Neuts (auto) 5.7 10^3/uL (1.4-6.5) 05/26/24 16:32
PT 14.0 Sec (11.4-14.6) 05/26/24 18:35
INR 1.05 05/26/24 18:35
APTT 35.9 Sec (23.4-35.0) H 05/26/24 18:35
Sodium 137 mmol/L (135-145) 05/27/24 04:59
Potassium 4.7 mmol/L (3.5-5.1) 05/27/24 04:59
Chloride 104 mmol/L (98-107) 05/27/24 04:59
Carbon Dioxide 24 mmol/L (22-30) 05/27/24 04:59
BUN 14 mg/dl (9-20) 05/27/24 04:59
Creatinine 1.2 mg/dL (0.7-1.3) 05/27/24 04:59
Calcium 8.4 mg/dl (8.4-10.2) D 05/27/24 04:59
Total Bilirubin 1.3 mg/dl (0.2-1.3) 05/26/24 16:32
AST 109 U/L (17-59) H 05/26/24 16:32
ALT 116 U/L (0-50) H 05/26/24 16:32
Alkaline Phosphatase 69 U/L (38-126) 05/26/24 16:32
Diagnostic Image Results:
05/26/24 CT Abd/pelvis W Iv Cont
Similar prior examination. Presumed small intramural abscess measuring approximately 1.4 cm, previously measuring 1.7 cm. No perforation. No free air. Trace free fluid in the pelvis.
As before, hepatosplenomegaly. Fatty infiltration of liver. Mild nonspecific retroperitoneal adenopathy, likely reactive.
05/14/24 MRI abdomen with and without contrast
1. No MRI evidence for a liver abscess.
2. Hepatosplenomegaly.
3. Severe hepatic steatosis
4. Mild portacaval and retroperitoneal lymphadenopathy, which is nonspecific but similar to that seen on the recent CT abdomen/pelvis.
05/13/24 CT Abd/Pel (IV only)-DH only
1. Findings as above most consistent with acute sigmoid diverticulitis. There is associated abnormal collection of gas and fluid measuring up to 1.7 cm in diameter, most likely small abscess. As above, this may be an intramural position.
2. Hepatomegaly and hepatic fatty infiltration.
3. Splenomegaly.
4. Mild retroperitoneal lymphadenopathy. This may be reactive, exact etiology is indeterminate at CT.
Prior GI Procedures:
EGD: none
Colonoscopy: none
Assessment / Plan
-
Pt is a 38-year-old male with past medical history of TIA in 2021, hypertension, diabetes, obesity, hepatic steatosis with recurrent admission to . He was admitted to 05/13-05/15 with abdominal pain, vomiting and diarrhea. Ct on admission
with diverticulitis with small 1.7 cm abscess along with elevated LFT's. Pt with treated with IV abx then OP Augmentin x 10 day completed on Sunday. He states pain never went away with some period of crampy pain. He also admits to onset of fever
after antibiotic stopped and nausea with vomiting small amount and dry heaves. On return CT was repeated with Mild persistent soft tissue stranding associated with the sigmoid colon, consistent with mild acute diverticulitis with abscess small at
1.4 cm prior 1.7 cm. Also noted HSM and fatty liver with likely reactive adenopathy. Labs notable for WBC 19,000, with elevated AST 109/ALT 116 but lower then prior transaminase elevation last admission. He did complete MRI last admission with LFT
elevation with no liver abscess, HSM, severe hepatic steatosis, mild portacaval retroperitoneal lymphadenopathy nonspecific similar to recent CT.
-recurrent fever/leukocytosis
-nausea/vomiting
-diverticulitis with abscess(small on follow up CT 1.3 cm) with persistent LLQ pain
-increased transaminase
other med problems:
-TIA
-HTN
-DM
-obesity
-hepatic steatosis
-splenomegaly
PLAN:
Etiology of symptoms with concern for continued diverticulitis though abscess smaller on repeat CT
cont abx
cont sips clears
colorectal surgery following
eventual OP colonoscopy
will add PPI daily with nausea/vomiting - ? related to recent abx, GERD vs other
trend LFT's some improvement from prior admission may have some chronic elevation with fatty liver
recent MRI as noted
hepatitis neg
OP work up for fatty liver
Pt due 06/26 11:30 am for GI follow up with Michelle Heath
-
-
Thank you for consultation and allowing me to participate in the patient's care. Please call the second rigger GI physician during the after hours with any questions or concerns.
[2024-05-27] MEDS: PROTONIX IV 40 MG IV (13:08)
[2024-05-27] MEDS: NSS (PRESERVATIVE FREE) 10 ML IV (13:08)
[2024-05-27] MEDS: LOVENOX 40 MG SC (20:13)
[2024-05-27 20:20] LABS: Glucose - Point of Care 80 mg/dl (70-99)
[2024-05-28 00:07] VITALS: BP 90/63
[2024-05-28 00:14] LABS: Glucose - Point of Care 84 mg/dl (70-99)
[2024-05-28] MEDS: ZOSYN 50 IV ×3 (05:14→17:43)
[2024-05-28 06:25] LABS: Glucose - Point of Care 77 mg/dl (70-99)
[2024-05-28 06:35] LABS: Hematocrit 39.3 % (39.0-52.0); Hemoglobin 12.9 g/dL (13.0-18.0); Mean Corp Hgb Conc. 32.8 g/dL (33.0-37.0); Mean Corpuscular Hgb 29.7 pg (27.0-31.0); Mean Corpuscular Volume 90.3 fL (80.0-94.0); Mean Platelet Volume 11.9 fL (7.4-10.4); Platelet Count 175 10^3/uL (130-400); Red Blood Cell Count 4.35 10^6/uL (4.70-6.10); Red Cell Dist. Width 13.2 % (11.5-14.5); White Blood Cell Count 8.5 10^3/uL (4.8-10.8)
[2024-05-28 07:07] LABS: ALT (SGPT) 79 U/L (0-50); AST (SGOT) 61 U/L (17-59); Albumin 3.4 g/dl (3.5-5.0); Alkaline Phosphatase 46 U/L (38-126); Blood Urea Nitrogen 13 mg/dl (9-20); Calcium 8.7 mg/dl (8.4-10.2); Carbon Dioxide 29 mmol/L (22-30); Chloride 104 mmol/L (98-107); Estimated Creatinine Clearance > 125 ml/min; Glucose 79 mg/dl (70-99); Potassium 4.3 mmol/L (3.5-5.1); Sodium 141 mmol/L (135-145); Total Bilirubin 0.9 mg/dl (0.2-1.3); Total Protein 6.6 g/dl (6.3-8.2); eGFR > 60.00
[2024-05-28 07:55] VITALS: BP 108/68
[2024-05-28] MEDS: NSS (PRESERVATIVE FREE) 10 ML IV (08:25)
[2024-05-28] MEDS: PROTONIX IV 40 MG IV (08:25)
--- NOTE | 2024-05-28 09:49 | W.PN.CRS1 ---
Today's Communication / Plan
-
as below
Assessment/Plan
-
38-year-old male with PMH of DM, HTN, HLD and recent admission for diverticulitis from 05/13 to 05/15 who re-presents with persistent nausea/vomiting and mild abdominal pain; repeat CTs showed improving diverticulitis with smaller intramural abscess
than prior
AFVSS
WBC 8.5 from 11.1, Hb 12.9 from 13.1, creatinine 1.1
� Continue with nonoperative measures
� Okay for clear liquids
� Slight bump in creatinine to 1.2, stable today; if not tolerating clears, would start maintenance fluids
� Continue IV Zosyn
� Continue DVT PPx with Lovenox
� Appreciate GI
� Appreciate hospitalist
Subjective Data
Subjective Data
Date of Service: May 28, 2024
Overall feeling much better. Just a couple episodes of nausea overnight, no vomits. No nausea this morning.
Passing flatus and small BMs. Voiding.
Denies pain.
Objective Data
-
Vital Signs
Temp Pulse Resp BP Pulse Ox
98.8 F 75 16 108/68 95
05/28/24 07:55 05/28/24 07:55 05/28/24 07:55 05/28/24 07:55 05/28/24 07:55
Intake & Output
05/27/24 05/28/24 05/29/24
06:59 06:59 06:59
Intake Total 120 / 120
Balance 120 / 120
Intake:
Oral fluids 120 / 120
Other:
Number of approximated MODERATE 3
amounts of urine
Lab Results
05/28/24 05:23
05/28/24 05:23
Physical Exam
-
General: No Acute Distress and AOx3
HEENT: Grossly Normal
Abdomen: Soft, Non Distended, Non Tender, No Guarding, No Rebound and Other
Skin: Warm and Dry
--- NOTE | 2024-05-28 10:25 | W.PN.HOSP.TC ---
Today's Communication/Plan
-
Continue antibiotics
Clear liquids
Assessment / Plan
Assessment / Plan
Gen-AAOx3, NAD
HEENT-NC, AT, anicteric, clear oral mm
Neck-supple
CV-reg, no M, +S1/S2
Lungs-clear B/L
Abd-soft, NT, ND
Ext-no edema
Musculoskeletal-no cyanosis, clubbing
Skin-warm and dry
Neuro-grossly non-focal
Psych-calm, cooperative
Intractable vomiting -resolved. Appreciate GI input. Etiology possibly related to abscess and diverticulitis, sepsis.
Clear liquid diet ordered.
Sepsis -source likely GI related, recent admission with acute diverticulitis complicated by abscess. Sepsis improved. WBC count normal. Continue IV Zosyn. Blood cultures negative so far. Afebrile.
Subacute sigmoid diverticulitis/abscess -recent admission and discharge May 16. Completed course of Augmentin on May 25. Abdominal pain worsened May 26.
CT abdomen/pelvis shows mild acute sigmoid diverticulitis. Small intramural abscess has decreased in size, 1.4 cm. Previously measured 1.7 cm. No perforation. No free air.
Anticipate discharge on longer antibiotic course.
DM2 without hyperglycemia -glucose 79 this morning. Hold metformin. Use low resistance NovoLog scale.
Essential hypertension -relative hypotension noted. Hold nifedipine, lisinopril.
Hyperlipidemia -hold atorvastatin given elevated LFTs.
Elevated LFTs -severe hepatic steatosis, hepatosplenomegaly and lymphadenopathy noted on recent abdominal MRI. Weight loss is the pfeiffer. Needs outpatient follow-up.
Obesity due to excess calories
Full code
Updated family at the bedside.
Anticipated Discharge: Within 24 hours
Subjective/Interval History
-
Date of Service: May 28, 2024
Patient seen and examined. Feeling much better. No complaints.
Objective Data
-
Labs:
Laboratory Results
05/28/24
05:23
WBC 8.5
Hgb 12.9 L
Hct 39.3
Plt Count 175
Sodium 141
Potassium 4.3
Chloride 104
Carbon Dioxide 29
BUN 13
Creatinine 1.1
Glucose 79
Calcium 8.7
Total Bilirubin 0.9
AST 61 H
ALT 79 H
Alkaline Phosphatase 46
Vital Signs:
Vital Signs
Temp Pulse Resp BP Pulse Ox
98.8 F 75 16 108/68 95
05/28/24 07:55 05/28/24 07:55 05/28/24 07:55 05/28/24 07:55 05/28/24 07:55
I&O
05/27/24 05/28/24 05/29/24
06:59 06:59 06:59
Intake Total 120 / 120
Balance 120 / 120
Review of Systems
-
History Source: Patient
All other systems: Reviewed and negative
[2024-05-28 12:45] LABS: Glucose - Point of Care 217 mg/dl (70-99)
--- NOTE | 2024-05-28 13:29 | W.PN.GI.CBS2 ---
Today's Communication / Plan
-
No further vomiting, probably related to persistent diverticular abscess
Cont PPI
Will sign off. please call back if needed
Assessment / Plan
-
Pt is a 38-year-old male with past medical history of TIA in 2021, hypertension, diabetes, obesity, hepatic steatosis with recurrent admission to . He was admitted to 05/13-05/15 with abdominal pain, vomiting and diarrhea. Ct on admission
with diverticulitis with small 1.7 cm abscess along with elevated LFT's. Pt with treated with IV abx then OP Augmentin x 10 day completed on Sunday. He states pain never went away with some period of crampy pain. He also admits to onset of fever
after antibiotic stopped and nausea with vomiting small amount and dry heaves. On return CT was repeated with Mild persistent soft tissue stranding associated with the sigmoid colon, consistent with mild acute diverticulitis with abscess small at
1.4 cm prior 1.7 cm. Also noted HSM and fatty liver with likely reactive adenopathy. Labs notable for WBC 19,000, with elevated AST 109/ALT 116 but lower then prior transaminase elevation last admission. He did complete MRI last admission with LFT
elevation with no liver abscess, HSM, severe hepatic steatosis, mild portacaval retroperitoneal lymphadenopathy nonspecific similar to recent CT.
-recurrent fever/leukocytosis
-nausea/vomiting
-diverticulitis with abscess(small on follow up CT 1.3 cm) with persistent LLQ pain
-increased transaminase
other med problems:
-TIA
-HTN
-DM
-obesity
-hepatic steatosis
-splenomegaly
Subjective
Subjective
Date of Service: May 28, 2024
Tolerating clears. No n/v. Some lower abd cramps with BM
Objective
Data Reviewed
Laboratory Data:
Laboratory Results
05/28/24 05:23
05/28/24 05:23
Laboratory Results
PT 14.0 Sec (11.4-14.6) 05/26/24 18:35
INR 1.05 05/26/24 18:35
APTT 35.9 Sec (23.4-35.0) H 05/26/24 18:35
Magnesium 2.1 mg/dl (1.6-2.3) 05/27/24 04:59
Total Bilirubin 0.9 mg/dl (0.2-1.3) 05/28/24 05:23
AST 61 U/L (17-59) H 05/28/24 05:23
ALT 79 U/L (0-50) H 05/28/24 05:23
Alkaline Phosphatase 46 U/L (38-126) 05/28/24 05:23
Vital Signs and I&O:
Vital Signs
Temp Pulse Resp BP Pulse Ox
98.8 F 75 16 108/68 95
05/28/24 07:55 05/28/24 07:55 05/28/24 07:55 05/28/24 07:55 05/28/24 07:55
I&O
05/27/24 05/28/24 05/29/24
06:59 06:59 06:59
Intake Total 120 / 120
Balance 120 / 120
Physical Exam
Physical Exam
GI: Soft, Non Distended and Tender
[2024-05-28 16:00] VITALS: BP 101/64
--- NOTE | 2024-05-28 17:00 | CM ---
Alert awake oriented patient who lives with his girl friend Rosanne who lives in a 2 story home with 8 step to enter and 14 steps to bed and bathroom. He is independent in driving and in all activities of daily living.He was offered VN he
declined need.No adaptive device.
No VN hx / No SNF history
Pharmacy [facility]
PCP DR Casiano
PLAN Home Declined VN
[2024-05-28 17:30] LABS: Glucose - Point of Care 94 mg/dl (70-99)
[2024-05-28] MEDS: LOVENOX 40 MG SC (17:42)
[2024-05-28 21:42] LABS: Glucose - Point of Care 85 mg/dl (70-99)
[2024-05-28 23:00] VITALS: BP 101/66
[2024-05-29] MEDS: ZOSYN 50 IV ×4 (00:18→17:58)
[2024-05-29 07:30] VITALS: BP 113/66
[2024-05-29] MEDS: PROTONIX IV 40 MG IV (09:45)
[2024-05-29] MEDS: NSS (PRESERVATIVE FREE) 10 ML IV (09:46)
[2024-05-29 10:12] LABS: Glucose - Point of Care 108 mg/dl (70-99)
--- NOTE | 2024-05-29 10:53 | W.PN.CRS1 ---
Today's Communication / Plan
-
Diet advancement.
Assessment/Plan
-
Diverticulitis with intramural abscess.
1. low grade temp yesterday. Normal WBC. Minimally tender. Continuing antibiotics.
2. tolerated clears. Will advance to D by dinner. Hopefully home tomorrow.
Subjective Data
Subjective Data
Date of Service: May 29, 2024
Tolerating clears.
Less pain.
Objective Data
-
Vital Signs
Temp Pulse Resp BP Pulse Ox
98.1 F 65 16 113/66 97
05/29/24 07:30 05/29/24 07:30 05/29/24 07:30 05/29/24 07:30 05/29/24 07:30
Intake & Output
05/28/24 05/29/24 05/30/24
06:59 06:59 06:59
Intake Total 120 / 120 1520 / 1520
Balance 120 / 120 1520 / 1520
Intake:
Oral fluids 120 / 120 1400 / 1400
IV fluids (Total) 100 / 100
IV piggybacks 20 / 20
Other:
Number of approximated MODERATE 3 4
amounts of urine
Lab Results
05/28/24 05:23
Physical Exam
-
General: No Acute Distress
Chest: Clear
Cardiovascular: Regular Rate & Rhythm
Abdomen: Soft, Non Distended and Tender (mild)
[2024-05-29 11:53] LABS: Glucose - Point of Care 101 mg/dl (70-99)
--- NOTE | 2024-05-29 12:12 | W.PN.HOSP.TC ---
Today's Communication/Plan
-
Check CBC
Advance diet as tolerated
Assessment / Plan
Assessment / Plan
Gen-AAOx3, NAD
HEENT-NC, AT, anicteric, clear oral mm
Neck-supple
CV-reg, no M, +S1/S2
Lungs-clear B/L
Abd-soft, NT, ND
Ext-no edema
Musculoskeletal-no cyanosis, clubbing
Skin-warm and dry
Neuro-grossly non-focal
Psych-calm, cooperative
Intractable vomiting -resolved. Appreciate GI input. Etiology possibly related to abscess and diverticulitis, sepsis.
Diet to be advanced to low residue as tolerated today.
Sepsis -source likely GI related, recent admission with acute diverticulitis complicated by abscess. Sepsis improved. WBC count normal. Continue IV Zosyn. Blood cultures negative so far. Afebrile.
Subacute sigmoid diverticulitis/abscess -recent admission and discharge May 16. Completed course of Augmentin on May 25. Abdominal pain worsened May 26.
CT abdomen/pelvis shows mild acute sigmoid diverticulitis. Small intramural abscess has decreased in size, 1.4 cm. Previously measured 1.7 cm. No perforation. No free air.
Anticipate discharge on longer antibiotic course.
DM2 without hyperglycemia -glucose 108 this morning. Hold metformin. Use low resistance NovoLog scale.
Essential hypertension -relative hypotension noted. Hold nifedipine, lisinopril.
Hyperlipidemia -hold atorvastatin given elevated LFTs.
Elevated LFTs -severe hepatic steatosis, hepatosplenomegaly and lymphadenopathy noted on recent abdominal MRI. Weight loss is the pfeiffer. Needs outpatient follow-up.
Obesity due to excess calories
Full code
Anticipated Discharge: Within 24 hours
Subjective/Interval History
-
Date of Service: May 29, 2024
Patient seen and examined. No complaints today.
Objective Data
-
Labs:
Laboratory Results
05/29/24
11:35
WBC Pending
Hgb Pending
Hct Pending
Plt Count Pending
Vital Signs:
Vital Signs
Temp Pulse Resp BP Pulse Ox
98.1 F 65 16 113/66 97
05/29/24 07:30 05/29/24 07:30 05/29/24 07:30 05/29/24 07:30 05/29/24 07:30
I&O
05/28/24 05/29/24 05/30/24
06:59 06:59 06:59
Intake Total 120 / 120 1520 / 1520
Balance 120 / 120 1520 / 1520
Review of Systems
-
History Source: Patient
All other systems: Reviewed and negative
[2024-05-29 12:13] LABS: Hematocrit 39.3 % (39.0-52.0); Mean Corp Hgb Conc. 33.1 g/dL (33.0-37.0); Mean Corpuscular Hgb 29.5 pg (27.0-31.0); Mean Corpuscular Volume 89.1 fL (80.0-94.0); Platelet Count 196 10^3/uL (130-400); Red Blood Cell Count 4.41 10^6/uL (4.70-6.10); Red Cell Dist. Width 12.9 % (11.5-14.5); White Blood Cell Count 7.4 10^3/uL (4.8-10.8)
[2024-05-29 13:06] LABS: Segmented Neutrophils 17 % (42-75)
[2024-05-29 13:07] LABS: Absolute Neutrophils -Man Diff 1.3 10^3/uL (1.4-6.5); Atypical Lymphocytes 36 %; Band Neutrophils 1 % (0-3); Eosinophils 2 % (0-6); Lymphocytes 33 % (20-51); Monocytes 11 % (2-9); Platelets Checked YES
[2024-05-29 13:10] LABS: Normal RBC Morphology Yes; Total Cells Counted 100
[2024-05-29 15:50] VITALS: BP 115/76
[2024-05-29 16:53] LABS: Glucose - Point of Care 88 mg/dl (70-99)
[2024-05-29] MEDS: LOVENOX 40 MG SC (17:58)
[2024-05-29 21:42] LABS: Glucose - Point of Care 102 mg/dl (70-99)
[2024-05-29 23:35] VITALS: BP 116/70
[2024-05-30] MEDS: ZOSYN 50 IV ×3 (00:29→13:06)
[2024-05-30 07:53] VITALS: BP 98/68
[2024-05-30 08:01] LABS: Glucose - Point of Care 107 mg/dl (70-99)
[2024-05-30] MEDS: PROTONIX IV 40 MG IV (08:08)
[2024-05-30] MEDS: NSS (PRESERVATIVE FREE) 10 ML IV (08:08)
--- NOTE | 2024-05-30 09:08 | W.PN.CRS1 ---
Today's Communication / Plan
-
Disposition per hospitalist.
Assessment/Plan
-
Diverticulitis with intramural abscess.
1. tolerating LRD.
2. nontender.
3. discharge on LRD and antibiotics. Follow up with Dr. Ivan in 2 weeks.
Subjective Data
Subjective Data
Date of Service: May 30, 2024
No pain.
Tolerating diet.
Objective Data
-
Vital Signs
Temp Pulse Resp BP Pulse Ox
98.0 F 65 18 98/68 97
05/30/24 07:53 05/30/24 07:53 05/30/24 07:53 05/30/24 07:53 05/30/24 07:53
Intake & Output
05/29/24 05/30/24 05/31/24
06:59 06:59 06:59
Intake Total 1520 / 1520 1320 / 1320
Balance 1520 / 1520 1320 / 1320
Intake:
Oral fluids 1400 / 1400 1320 / 1320
IV fluids (Total) 100 / 100
IV piggybacks 20 / 20
Other:
Number of approximated MODERATE 4 3
amounts of urine
Lab Results
05/29/24 11:35
05/28/24 05:23
Physical Exam
-
General: No Acute Distress
Chest: Clear
Cardiovascular: Regular Rate & Rhythm
Abdomen: Soft, Non Distended and Non Tender
[2024-05-30 11:29] LABS: Glucose - Point of Care 159 mg/dl (70-99)
--- NOTE | 2024-05-30 11:58 | W.DS.TRANS ---
DC Summary - [employer]
-
Discharge Instructions:
Discharge Diagnosis/Procedures Acute diverticulitis, abscess
Diet Low Fat,Low Residue
Activity As tolerated
Driving Restrictions As prior to admission
Bathing Restrictions None
Instructions:
Stand-Alone Forms:
Changes to Home Medications: No
Discharge Medications:
DC Medications w/original date entered in [facility]
cyanocobalamin (vitamin B-12) 1,000 mcg tablet 1,000 mcg PO DAILY #30 tabs 08/03/21
nifedipine 30 mg tablet,extended release 30 mg PO DAILY #30 tabs 08/03/21
lisinopril 20 mg tablet 20 mg PO DAILY 05/13/24
omega 8-vjm-gft-fish oil 1,000 mg (120 mg-180 mg) capsule (Fish Oil) 1 cap PO DAILY 05/13/24
therapeutic multivitamin 1 tab PO DAILY 05/13/24
atorvastatin 10 mg tablet 10 mg PO DAILY 05/26/24
metformin 500 mg tablet 500 mg PO BID 05/26/24
amoxicillin 875 mg-potassium clavulanate 125 mg tablet 1 tab PO BID #28 tabs 05/30/24
Home Medication Changes
Pending Results: No
--- NOTE | 2024-05-30 11:58 | W.PN.HOSP.TC ---
Today's Communication/Plan
-
Discharge
Assessment / Plan
Assessment / Plan
Gen-AAOx3, NAD
HEENT-NC, AT, anicteric, clear oral mm
Neck-supple
CV-reg, no M, +S1/S2
Lungs-clear B/L
Abd-soft, NT, ND
Ext-no edema
Musculoskeletal-no cyanosis, clubbing
Skin-warm and dry
Neuro-grossly non-focal
Psych-calm, cooperative
Intractable vomiting -resolved. Appreciate GI input. Etiology possibly related to abscess and diverticulitis, sepsis. Tolerating solids.
Sepsis -source likely GI related, recent admission with acute diverticulitis complicated by abscess. Sepsis improved. WBC count normal. Continue IV Zosyn. Blood cultures negative so far. Afebrile.
Subacute sigmoid diverticulitis/abscess -recent admission and discharge May 16. Completed course of Augmentin on May 25. Abdominal pain worsened May 26.
CT abdomen/pelvis shows mild acute sigmoid diverticulitis. Small intramural abscess has decreased in size, 1.4 cm. Previously measured 1.7 cm. No perforation. No free air. Can change to Augmentin today and discharge. Will continue for 2 weeks
but provided specific instructions to patient to touch base with colorectal surgery prior to the end of antibiotics to decide on timing of repeat CT to document improvement in abdominal abscess. Might need longer course of Augmentin if abscess
still present on repeat CT.
DM2 without hyperglycemia -glucose 107 this morning. Resume metformin on discharge.
Essential hypertension -relative hypotension noted. Holding nifedipine, lisinopril in the hospital. Can resume meds on discharge but patient should be checking blood pressure closely at home and holding meds if systolic pressure less than 110.
Discussed with nursing. Follow-up closely with PCP next week.
Hyperlipidemia -resume atorvastatin on discharge.
Elevated LFTs -severe hepatic steatosis, hepatosplenomegaly and lymphadenopathy noted on recent abdominal MRI. Weight loss is the pfeiffer. Needs outpatient follow-up. LFTs trending down. He has an appointment to see gastroenterology in late June.
Obesity due to excess calories
Full code
Dispo -medically stable for discharge home today. Outpatient follow-up with PCP, colorectal surgery, GI. Discussed with nursing.
35 minutes spent in discharge process.
Anticipated Discharge: Today
Subjective/Interval History
-
Date of Service: May 30, 2024
Patient seen/examined. Denies abdominal pain, just has mild pressure sensation in LLQ. No nausea.
Objective Data
-
Vital Signs:
Vital Signs
Temp Pulse Resp BP Pulse Ox
98.0 F 65 18 98/68 97
05/30/24 07:53 05/30/24 07:53 05/30/24 07:53 05/30/24 07:53 05/30/24 07:53
I&O
05/29/24 05/30/24 05/31/24
06:59 06:59 06:59
Intake Total 1520 / 1520 1320 / 1320
Balance 1520 / 1520 1320 / 1320
Review of Systems
-
History Source: Patient
All other systems: Reviewed and negative
[2024-05-30 13:30] VITALS: BP 110/73
--- NOTE | 2024-05-30 15:41 | CM ---
MD entered order for discharge.
Spoke with pt he said he is ready for discharge today.
His friend Eliecer will drive him home.
He declined VN at co.
PLAn Home no needs
== END 2024-05-30 14:36 | disposition home or self-care (01) | DRG 872 ==
LOC: 3 WEST ACU 22:13
PROVIDERS: Nurse Practitioner Adult Health; ADMITTING PHYSICIAN Internal Medicine; ATTENDING PHYSICIAN Hospitalist; CONSULT PHYSICIAN Specialist; EMERGENCY PHYSICIAN Student in an Organized Health Care Education/Training Program; FAMILY PHYSICIAN Physician Assistant Medical; OTHER PHYSICIAN Surgery
DX: A41.9 Sepsis, unspecified organism (principal); K57.20 Diverticulitis of large intestine with perforation and abscess without bleeding; E87.20 Acidosis, unspecified; I10 Essential (primary) hypertension; E78.00 Pure hypercholesterolemia, unspecified; E66.09 Other obesity due to excess calories; E11.65 Type 2 diabetes mellitus with hyperglycemia; Z68.35 Body mass index [BMI] 35.0-35.9, adult
CPT/HCPCS: 74177; 80048; 80053; 82962; 83605; 83735; 85025; 85027; 85610; 85730; 87040; 96365; 96375; 99285; Q9967

== ENCOUNTER → 2024-06-13 10:21 | Outpatient (REF) | payer OTHER, SELFPAY ==
[2024-06-13 12:36] LABS: Blood Urea Nitrogen 14 mg/dl (9-20)
== END ==
LOC: REG 10:21
PROVIDERS: ATTENDING PHYSICIAN Physician Assistant Medical
DX: K57.92 Diverticulitis of intestine, part unspecified, without perforation or abscess without bleeding (principal)
CPT/HCPCS: 36415; 82565; 84520

== ENCOUNTER → 2024-06-16 11:22 | Outpatient (REF) | payer OTHER, SELFPAY | LOC: RAD 11:22 | PROVIDERS: ATTENDING PHYSICIAN Physician Assistant Medical | DX: K57.92 Diverticulitis of intestine, part unspecified, without perforation or abscess without bleeding (principal); K57.20 Diverticulitis of large intestine with perforation and abscess without bleeding | CPT/HCPCS: 74177; Q9967 ==

== ENCOUNTER 2024-06-30 07:49 | Inpatient (IN) | payer OTHER, SELFPAY ==
[2024-06-24 11:01] VITALS: BMI 36.2
[2024-06-24 11:29] LABS: Hematocrit 43.3 % (39.0-52.0); Hemoglobin 14.4 g/dL (13.0-18.0); Mean Corp Hgb Conc. 33.3 g/dL (33.0-37.0); Mean Corpuscular Hgb 29.7 pg (27.0-31.0); Mean Corpuscular Volume 89.3 fL (80.0-94.0); Platelet Count 223 10^3/uL (130-400); Red Blood Cell Count 4.85 10^6/uL (4.70-6.10); Red Cell Dist. Width 13.6 % (11.5-14.5); White Blood Cell Count 6.4 10^3/uL (4.8-10.8)
[2024-06-24 11:44] LABS: INR 0.95
[2024-06-24 11:45] LABS: APTT 36.3 Sec (23.4-35.0)
[2024-06-24 11:59] LABS: ALT (SGPT) 51 U/L (0-50); AST (SGOT) 47 U/L (17-59); Albumin 4.2 g/dl (3.5-5.0); Alkaline Phosphatase 46 U/L (38-126); Blood Urea Nitrogen 11 mg/dl (9-20); Calcium 9.3 mg/dl (8.4-10.2); Carbon Dioxide 25 mmol/L (22-30); Chloride 106 mmol/L (98-107); Estimated Creatinine Clearance > 125 ml/min; Glucose 112 mg/dl (70-99); Potassium 4.4 mmol/L (3.5-5.1); Sodium 141 mmol/L (135-145); Total Bilirubin 0.5 mg/dl (0.2-1.3); Total Protein 7.2 g/dl (6.3-8.2); eGFR > 60.00
[2024-06-24 14:34] LABS: Glycohemoglobin (HgbA1c) 5.6 % (4.0-5.6)
[2024-06-30] VITALS (13 sets, daily range): BP systolic 108–124; BP diastolic 59–81; BMI 36.2
[2024-06-30 07:55] LABS: Glucose - Point of Care 107 mg/dl (70-99)
[2024-06-30] MEDS: NORMOSOL-R/PLASMALYTE-A 1000 IV ×3 (08:10→23:58)
[2024-06-30] MEDS: TYLENOL 1000 MG PO (08:10)
[2024-06-30] MEDS: ENTEREG 12 MG PO (08:10)
[2024-06-30] MEDS: HEPARIN 5000 UNITS SC (08:10)
--- NOTE | 2024-06-30 13:09 | W.IMMPOSTOP ---
Addendum entered and electronically signed by Gray Ivan MD 06/30/24 13:24:
ANGIE Butt, was present and assisted in the flexible sigmoidoscopy and anastomosis.
Original Note:
Surgical Immed Post Op Note
-
Primary Surgeon: Art Ivan MD
Final Cigar And Box Examiner: ROSSI Palencia
Pre-op Diagnosis: Recurrent sigmoid diverticulitis with intramural abscess
Post-op Diagnosis: Same
Procedure Performed: Robotic sigmoid colectomy with intracorporeal anastomosis
Anesthesia Type: GET
Specimen / Cultures: Sigmoid colon (suture is proximal)
Estimated Blood Loss: 15cc
Complications: None
Operative Findings: Acute and chronic sigmmoid diverticulitis
28mm EEA
Normal leak test.
[2024-06-30 13:34] LABS: Glucose - Point of Care 177 mg/dl (70-99)
[2024-06-30] MEDS: ZOFRAN 4 MG IV (13:42)
[2024-06-30] MEDS: TORADOL 15 MG IV ×2 (14:05→20:22)
--- NOTE | 2024-06-30 15:00 | PTCARENOTE ---
Telephone report received from SIDE BOSS Stephen; @15:00 patient arrived in bed, IVF infusing, kennedy intact, and on 3L O2 @15:00; patient has 4 lap sites and 1 suprapubic transverse incision all approximated with surgical glue; VSS.
[2024-06-30] MEDS: TYLENOL 650 MG PO ×3 (16:07→23:58)
[2024-06-30 16:58] LABS: Glucose - Point of Care 174 mg/dl (70-99)
[2024-06-30] MEDS: NOVOLOG FLEXPEN-MODERATE RESISTANCE 1 UNITS SC (17:50)
[2024-06-30] MEDS: FLUSH (NSS) 2 FLUSH IV (20:31)
[2024-06-30 21:23] LABS: Glucose - Point of Care 186 mg/dl (70-99)
[2024-07-01] MEDS: TORADOL 15 MG IV ×3 (02:10→16:06)
[2024-07-01] MEDS: FLUSH (NSS) 2 FLUSH IV (02:11)
[2024-07-01 03:04] VITALS: BP 119/68
[2024-07-01] MEDS: TYLENOL PO (04:54)
[2024-07-01 05:46] VITALS: BMI 35.9
[2024-07-01 07:05] LABS: % Basophils 0.2 % (0-2); % Eosinophils 0.1 % (0-6); % Immature Granulocytes 0.4 % (0-0.5); % Lymphocytes 16.6 % (20.5-51.1); % Monocytes 9.7 % (1.7-9.3); Absolute Immature Granulocytes 0.1 10^3/uL (0-0.05); Absolute Lymphocytes 2.2 10^3/uL (1.2-3.4); Absolute Monocytes 1.3 10^3/uL (0.1-0.6); Absolute Neutrophils 9.7 10^3/uL (1.4-6.5); Hematocrit 38.7 % (39.0-52.0); Hemoglobin 13.3 g/dL (13.0-18.0); Mean Corp Hgb Conc. 34.4 g/dL (33.0-37.0); Mean Corpuscular Hgb 29.8 pg (27.0-31.0); Mean Corpuscular Volume 86.6 fL (80.0-94.0); Mean Platelet Volume 10.6 fL (7.4-10.4); Nucleated Red Blood Cells % 0 % (-); Platelet Count 211 10^3/uL (130-400); Red Blood Cell Count 4.47 10^6/uL (4.70-6.10); Red Cell Dist. Width 13.4 % (11.5-14.5); White Blood Cell Count 13.2 10^3/uL (4.8-10.8)
[2024-07-01 07:11] LABS: Glucose - Point of Care 152 mg/dl (70-99)
[2024-07-01 07:41] LABS: Blood Urea Nitrogen 8 mg/dl (9-20); Calcium 8.8 mg/dl (8.4-10.2); Carbon Dioxide 24 mmol/L (22-30); Chloride 105 mmol/L (98-107); Estimated Creatinine Clearance > 125 ml/min; Glucose 152 mg/dl (70-99); Potassium 4.3 mmol/L (3.5-5.1); Sodium 138 mmol/L (135-145); eGFR > 60.00
[2024-07-01 07:55] VITALS: BP 107/66
[2024-07-01] MEDS: LIPITOR 10 MG PO (09:04)
[2024-07-01] MEDS: TYLENOL 650 MG PO ×3 (09:04→16:07)
[2024-07-01] MEDS: ZESTRIL 20 MG PO (09:05)
[2024-07-01] MEDS: ENTEREG 12 MG PO (09:05)
[2024-07-01] MEDS: PROTONIX IV 40 MG IV (09:06)
[2024-07-01] MEDS: NSS (PRESERVATIVE FREE) 10 ML IV (09:06)
[2024-07-01] MEDS: NOVOLOG FLEXPEN-MODERATE RESISTANCE 1 UNITS SC (09:07)
[2024-07-01] MEDS: NORMOSOL-R/PLASMALYTE-A 1000 IV (09:17)
--- NOTE | 2024-07-01 11:37 | CM ---
Patient seen bedside.
IA completed.
patient lives with girlfriend but will be moving to [facility] to a multi level home with 5 people.
patient independent prior to admission without assistive devices.
Patient drives and works.
Patient denies barbara care needs at this time.
PCP: Dr Casiano
Pharmacy: [facility]
Plan: home no needs anticipated.
--- NOTE | 2024-07-01 12:12 | W.PN.CRS1 ---
Today's Communication / Plan
-
Full liquids
DC Romo
DC IV fluids
Lovenox
Assessment/Plan
-
POD#1 Robotic sigmoid colectomy with intracorporeal anastomosis
-Vitals normal. WBC 13.2 as expected postop.
-Discontinue Romo
-Advance diet to full's
-Discontinue IV fluids
-Lovenox for DVT prophylaxis. Teds and SCDs in place.
-Pain control: Tylenol and Toradol standing, Dilaudid as needed.
-OR pathology pending
-On insulin sliding scale. Will convert to metformin once tolerating a regular diet.
Subjective Data
Procedure
06/20/2024- Robotic sigmoid colectomy with intracorporeal anastomosis
Subjective Data
Date of Service: July 01, 2024
Patient states he feels well. He has flatus but no bowel movements yet. He denies nausea or vomiting. He is tolerating clears without difficulty. He has been out of bed.
Objective Data
-
Vital Signs
Temp Pulse Resp BP Pulse Ox
98.3 F 84 20 107/66 95
07/01/24 07:55 07/01/24 07:55 07/01/24 07:55 07/01/24 07:55 07/01/24 07:55
Intake & Output
06/30/24 07/01/24 07/02/24
06:59 06:59 06:59
Intake Total 2680 / 2680
Output Total 2049 / 2049 1000 / 1000
Balance 630 / 630 -1000 / -1000
Intake:
Oral fluids 1080 / 1080
IV fluids (Total) 1600 / 1600
Output:
Urine, Romo 550 / 550 900 / 900
Urine, Voided 1500 / 1500 100 / 100
Lab Results
07/01/24 06:38
07/01/24 06:38
Physical Exam
-
General: No Acute Distress and AOx3
Abdomen: Soft, Non Distended and Non Tender
Skin: Warm and Dry
Incision: Clear, Dry, Intact
[2024-07-01 12:59] VITALS: BP 105/66
[2024-07-01 12:59] LABS: Glucose - Point of Care 140 mg/dl (70-99)
[2024-07-01] MEDS: NOVOLOG FLEXPEN-MODERATE RESISTANCE SC ×2 (13:01→17:22)
--- NOTE | 2024-07-01 15:14 | W.DS.TRANS ---
DC Summary - Radiology Director
-
Discharge Instructions:
Sleep Apnea Risk Intermediate
Discharge Diagnosis/Procedures Robotic sigmoid colectomy with intracorporeal
anastomosis
Diet Low Residue
Activity No strenuous activity
Additional Activity No lifting over 10 pounds (gallon of milk)
Driving Restrictions No driving for 1 week
Bathing Restrictions OK to Shower
Wound Care Allow glue to naturally fall off. Do not pick
at incisions.
Instructions: Low-fiber diet
Stand-Alone Forms:
Changes to Home Medications: No
Discharge Medications:
DC Medications w/original date entered in [employer]
cyanocobalamin (vitamin B-12) 1,000 mcg tablet 1,000 mcg PO DAILY #30 tabs 08/03/21
lisinopril 20 mg tablet 20 mg PO DAILY Blood Pressure 05/13/24
omega [id number]-fish oil 1,000 mg (120 mg-180 mg) capsule (Fish Oil) 1 cap PO DAILY Supplement 05/13/24
therapeutic multivitamin 1 tab PO DAILY Supplement 05/13/24
atorvastatin 10 mg tablet 10 mg PO DAILY High Cholesterol 05/26/24
metformin 500 mg tablet 500 mg PO BID Diabetes 05/26/24
oxycodone 5 mg tablet 5 mg PO Q6H PRN Pain #20 tabs 07/01/24
Home Medication Changes
oxycodone 5 mg tablet 5 mg PO Q6H PRN Pain #20 tabs 07/01/24
Pending Results: Yes
Additional Pending Results:
pathology
[2024-07-01 17:16] LABS: Glucose - Point of Care 143 mg/dl (70-99)
[2024-07-01] MEDS: LOVENOX 40 MG SC (17:22)
== END 2024-07-01 18:43 | disposition home or self-care (01) | DRG 331 ==
LOC: 2 SOUTH 07:49
PROVIDERS: Physician Assistant; ADMITTING PHYSICIAN Surgery; FAMILY PHYSICIAN Physician Assistant Medical
PROC: 0DBN0ZZ Excision of Sigmoid Colon, Open Approach (ICD-10-PCS; 2024-06-30)
DX: K57.20 Diverticulitis of large intestine with perforation and abscess without bleeding (principal); E66.9 Obesity, unspecified; Z68.35 Body mass index [BMI] 35.0-35.9, adult
CPT/HCPCS: 88307; 80048; 80053; 82962; 83036; 85025; 85027; 85610; 85730; 86850; 86900; 86901; J1335